=== PATIENT | female | born 1945 | race Caucasian/White ===

== ENCOUNTER 2018-08-02 15:09 | Observation (INO) ==
[2018-08-02] MEDS ORDERED: Aspirin 81 MG TAB.CHEW PO ONE (15:55)
--- NOTE | 2018-08-02 16:10 | Emergency Department Note ---
Disposition Clinical Impression: Chest pain Qualifiers: Chest pain type: unspecified Qualified Code(s): R07.9 - Chest pain, unspecified Disposition: Admitted As Inpatient Condition: Fair General Adult HPI - General Chief complaint: ED Weakness Stated complaint: Weakness, Jaw Pain Time Seen by Provider: 08/02/18 15:12 Source: patient Limitations: no limitations Nursing Notes Reviewed: Yes Vital Signs Reviewed: Yes - History of Present Illness HPI Narrative: 72-year-old female in no significant past medical history presenting to the emergency department chief complaint of chest pain. Patient states she was walking from a football game when she started having substernal chest pain where she was nauseated and diaphoretic. Patient states this has happened previously but she has not had a cardiac workup since 1969. Patient states after she stopped exerting herself or chest pain went away. Patient states this is just prior to arrival. Patient denies being on any anticoagulation. Denies any abdominal pain, cough or recent fevers. Patient did not take any medications prior to arrival. Patient is chest pain-free at this time. Pain Scale: 2 - Related Data Home Medications Medication Instructions Recorded Confirmed Albuterol Sulfate [Albuterol 2 puff IH Q4HR PRN 12/21/15 08/02/18 Inhaler] Docusate [Colace] 100 mg PO BID 12/21/15 08/02/18 Citalopram Hydrobromide [Celexa] 40 mg PO HS 05/08/16 08/02/18 ALPRAZolam [Xanax 0.5 MG Tablet] 0.5 mg PO BID 07/04/17 08/02/18 Cetirizine HCl [Zyrtec] 10 mg PO DAILY 07/04/17 08/02/18 Gabapentin [Neurontin] 300 mg PO TID 07/04/17 08/02/18 Cholecalciferol (D-3) [Vitamin D] 2,000 unit PO DAILY 08/02/18 08/02/18 Multivitamin [One Daily Essential] 1 tab PO DAILY 08/02/18 08/02/18 Previous Rx's Medication Instructions Recorded Cyclobenzaprine [Flexeril] 10 mg PO TID PRN #14 tablet 11/13/17 Allergies Allergy/AdvReac Type Severity Reaction Status Date / Time mannitol [From Reclast] Allergy Hives Verified 05/06/18 08:43 polymyxin B Allergy Rash Verified 05/06/18 08:43 sulfamethoxazole Allergy Rash Verified 05/06/18 08:43 [From Bactrim] trimethoprim [From Bactrim] Allergy Rash Verified 05/06/18 08:43 water for injection,sterile Allergy Hives Verified 05/06/18 08:43 [From Reclast] zoledronic acid Allergy Hives Verified 05/06/18 08:43 [From Reclast] valdecoxib AdvReac Mild raised bp Verified 05/06/18 08:43 Amoxicillin AdvReac See Verified 05/06/18 08:43 Comments NSAIDS (Non-Steroidal AdvReac Nausea Verified 05/06/18 08:43 Anti-Inflamma Muslrnp-Ilq-Pxh Reductase AdvReac Nausea Verified 05/06/18 08:43 Inhibitor [Statins] All systems ED: reviewed and negative except as stated. Constitutional: Denies: fever, chills Eyes: Reports: as per HPI ENT ED: Reports: as per HPI Cardiovascular: Reports: chest pain. Denies: palpitations, dyspnea on exertion Respiratory: Reports: as per HPI Gastrointestinal: Reports: nausea. Denies: abdominal pain, vomiting Genitourinary: Reports: as per HPI Musculoskeletal: Reports: as per HPI Integumentary: Reports: as per HPI Neurological: Denies: numbness, paresthesias Psychiatric: Reports: as per HPI Endocrine: Reports: as per HPI Hematological/Lymphatic: Reports: as per HPI Allergic/Immunologic: Reports: as per HPI Past Medical History - Past Medical History Attestation: Yes The following information was validated with the patient. Medical history: Reports: other Surgical history: Reports: cholecystectomy, hysterectomy Psychiatric history: Reports: anxiety, depression CHARGE MASTER ANALYST history: Reports: no CHARGE MASTER ANALYST history - Social History Smoking Status: Former smoker Smokeless Tobacco Status: No Alcohol use: Reports: none Drug use: Reports: none Physical Exam - General Limitations: no limitations General appearance: alert, in no apparent distress - Head Head exam: atraumatic, normocephalic, normal inspection - Eye Eye exam: Present: normal appearance. Absent: scleral icterus, conjunctival injection - ENT ENT exam: normal exam, mucous membranes moist - Neck Neck exam: Present: normal inspection, full ROM. Absent: tenderness, meningismus - Chest Chest inspection: Present: normal inspection, symmetric chest wall rise. Absent : tenderness, rash - Respiratory Respiratory exam: Present: normal lung sounds bilaterally. Absent: respiratory distress, wheezes - Cardiovascular Cardiovascular exam: Present: regular rate, normal rhythm, normal heart sounds - Abdominal Exam Abdominal exam: Present: soft, Non-Tender. Absent: distention, guarding, rebound - Extremities Exam Extremities exam: Present: normal inspection, full ROM - Neurological Exam Neurological exam: Present: alert, oriented X3 - Psychiatric Psychiatric exam: Present: normal affect, normal mood - Skin Skin exam: Present: warm, intact Course Course Narrative: 72-year-old female presenting for chest pain. History concerning for possible acute coronary syndrome due to diaphoresis, nausea and exertional characteristics. We will perform chest pain rule out including troponin, EKG and chest x-ray. Disposition most likely admission the pending results. We will provide the patient with aspirin. Patient chest pain-free at this time. - Reevaluation(s) Reevaluation #1: Patient's laboratory analysis benign. Chest radiograph benign. Patient has been pain-free throughout her stay. Due to her history and concerning history of present illness of chest pain we will plan to admit her for further evaluation. Patient remains alert and oriented 3 in the room with stable vital signs here patient agrees this plan. I spoke with the hospitalist transportation officer Dr. Diane who agrees to accept the patient at this time. Vital Signs Temperature 97.5 F L 08/02/18 15:17 Pulse Rate 94 08/02/18 15:17 Respiratory Rate 20 08/02/18 15:17 Blood Pressure 145/90 08/02/18 15:17 O2 Sat by Pulse Oximetry 95 08/02/18 15:17 Temperature 98.5 F 08/02/18 19:13 Pulse Rate 87 08/02/18 19:13 Respiratory Rate 16 08/02/18 19:13 Blood Pressure 128/73 08/02/18 19:13 O2 Sat by Pulse Oximetry 96 08/02/18 19:13 Oxygen Delivery Oxygen Delivery Room Air Medical Decision Making - Lab Data Result diagrams: 08/02/18 16:05 08/02/18 16:05 Lab Results 08/02/18 08/02/18 08/02/18 Range/Units 15:55 16:05 16:05 WBC 7.5 (4.3-11.1) K/mcL RBC 4.33 (3.82-4.97) M/mcL Hgb 13.6 (11.5-15.4) g/dL Hct 40.1 (35.3-44.9) % MCV 92.6 (83.0-100.0) fL MCH 31.4 (28.0-33.3) pg MCHC 33.9 (31.6-35.5) g/dL RDW 13.2 (11.5-14.5) % Plt Count 164 (140-400) K/mcL MPV 9.3 L (9.4-12.4) fL Immature Gran % 0.5 (0-4) % Seg Neutrophils % 62.2 % Lymphocytes % 25.3 % Monocytes % 8.7 % Eosinophils % 2.9 % Basophils % 0.4 % Neutrophils # 4.6 (1.6-8.9) K/mcL Lymphocytes # 1.9 (0.6-4.6) K/mcL Monocytes # 0.7 (0.0-1.3) K/mcL Eosinophils # 0.2 (0.0-0.6) K/mcL Basophils # 0.0 (0.0-0.2) K/mcL PT 10.6 (9.4-12.1) Seconds INR 0.9 APTT 30.1 (26.0-36.0) Seconds Sodium 138 (136-145) mEq/L Potassium 4.0 (3.5-5.1) mEq/L Chloride 103 (98-107) mEq/L Carbon Dioxide 27 (23-29) mEq/L BUN 18 (8-23) mg/dL Creatinine 0.90 (0.60-1.20) mg/dL Est GFR ( Amer) > 60 (> 60) Est GFR (Non-Af Amer) > 60 (> 60) BUN/Creatinine Ratio 20 (6-26) Glucose 93 (70-105) mg/dL Calculated Osmolality 288 (280-300) Calcium 9.4 (8.6-10.3) mg/dL Troponin I < 0.03 (< 0.04) ng/mL Urine Color (Yellow) Urine Clarity (Clear) Urine pH (5.0-8.0) pH Units Ur Specific [place] (1.010-1.025) Urine Protein (Neg-Trace) mg/dL Urine Glucose (UA) (Normal) mg/dL Urine Ketones (Negative) mg/dL Urine Blood (Negative) Urine Nitrite (Negative) Urine Bilirubin (Negative) Urine Urobilinogen (Normal) mg/dL Ur Leukocyte Esterase (Negative) Urine Microscopic RBC (0-3) per hpf Urine Microscopic WBC (0-3) per hpf Ur Squamous Epith Cells (None-Few) per lpf Urine Bacteria (None-Few) per hpf Hyaline Casts (None-Few) per lpf Ur Culture Indicated? (NO) 08/02/18 Range/Units 16:48 WBC (4.3-11.1) K/mcL RBC (3.82-4.97) M/mcL Hgb (11.5-15.4) g/dL Hct (35.3-44.9) % MCV (83.0-100.0) fL MCH (28.0-33.3) pg MCHC (31.6-35.5) g/dL RDW (11.5-14.5) % Plt Count (140-400) K/mcL MPV (9.4-12.4) fL Immature Gran % (0-4) % Seg Neutrophils % % Lymphocytes % % Monocytes % % Eosinophils % % Basophils % % Neutrophils # (1.6-8.9) K/mcL Lymphocytes # (0.6-4.6) K/mcL Monocytes # (0.0-1.3) K/mcL Eosinophils # (0.0-0.6) K/mcL Basophils # (0.0-0.2) K/mcL PT (9.4-12.1) Seconds INR APTT (26.0-36.0) Seconds Sodium (136-145) mEq/L Potassium (3.5-5.1) mEq/L Chloride (98-107) mEq/L Carbon Dioxide (23-29) mEq/L BUN (8-23) mg/dL Creatinine (0.60-1.20) mg/dL Est GFR ( Amer) (> 60) Est GFR (Non-Af Amer) (> 60) BUN/Creatinine Ratio (6-26) Glucose (70-105) mg/dL Calculated Osmolality (280-300) Calcium (8.6-10.3) mg/dL Troponin I (< 0.04) ng/mL Urine Color [place] A (Yellow) Urine Clarity Clear (Clear) Urine pH 7.5 (5.0-8.0) pH Units Ur Specific [place] < 1.005 L (1.010-1.025) Urine Protein Negative (Neg-Trace) mg/dL Urine Glucose (UA) Normal (Normal) mg/dL Urine Ketones Negative (Negative) mg/dL Urine Blood Negative (Negative) Urine Nitrite Positive A (Negative) Urine Bilirubin Negative (Negative) Urine Urobilinogen Normal (Normal) mg/dL Ur Leukocyte Esterase Small H (Negative) Urine Microscopic RBC 0-3 (0-3) per hpf Urine Microscopic WBC 0-3 (0-3) per hpf Ur Squamous Epith Cells Moderate H (None-Few) per lpf Urine Bacteria None Seen (None-Few) per hpf Hyaline Casts None Seen (None-Few) per lpf Ur Culture Indicated? YES A (NO) - EKG Data EKG #1 EKG attestation: Yes I reviewed and interpreted this EKG. EKG results narrative: Sinus rhythm. 86 beats for minute. [place] interval 157, QRS 96, QTC 442. PVCs. No sign of acute ST segment elevation or ischemia. Compared to previous EKG completed on 05/15/2018 no significant changes noted Attestation Statement - Attestation Attestation: I, Marty Magana, examined this patient and my medical decision-making was reviewed with the ANIMAL PATHOLOGIST/PA/Advanced Practice Nurse/Resident Physician. I agree with the documented findings, disposition and treatment plan as described except to the extent set forth below. 72-year-old female presents emergency Department with concerns of acute onset chest pain. Patient states she was walking to her car from a football game when she developed acute weakness and jaw pain and shoulder pain. It is associated with diaphoresis and nausea. This improved with rest. Patient denies a cardiac history however has not had a cardiac evaluation of multiple years. She denies fever, chills, recent injury or trauma or changes in her medications. Initial troponin negative. EKG did not show evidence of STEMI or other dysrhythmia. Patient will be admitted to the hospitalist for further care and evaluation.
[2018-08-02 16:25] LABS: Basophils % 0.4 %; Eosinophils # 0.2 K/mcL (0.0-0.6); Eosinophils % 2.9 %; Hematocrit 40.1 % (35.3-44.9); Hemoglobin 13.6 g/dL (11.5-15.4); Immature Granulocytes % 0.5 % (0-4); Lymphocytes # 1.9 K/mcL (0.6-4.6); Lymphocytes % 25.3 %; Mean Corpuscular HGB Conc 33.9 g/dL (31.6-35.5); Mean Corpuscular Hemoglobin 31.4 pg (28.0-33.3); Mean Corpuscular Volume 92.6 fL (83.0-100.0); Mean Platelet Volume 9.3 fL (9.4-12.4); Monocytes # 0.7 K/mcL (0.0-1.3); Monocytes % 8.7 %; Neutrophils # 4.6 K/mcL (1.6-8.9); Platelet Count 164 K/mcL (140-400); Red Blood Count 4.33 M/mcL (3.82-4.97); Red Cell Distribution Width 13.2 % (11.5-14.5); Segmented Neutrophils % 62.2 %
[2018-08-02 16:32] LABS: INR 0.9; Prothrombin Time 10.6 Seconds (9.4-12.1)
[2018-08-02 16:34] LABS: Activated Partial Thrombo Time 30.1 Seconds (26.0-36.0)
[2018-08-02 16:51] LABS: BUN/Creatinine Ratio 20 (6-26); Blood Urea Nitrogen 18 mg/dL (8-23); Calcium 9.4 mg/dL (8.6-10.3); Carbon Dioxide 27 mEq/L (23-29); Chloride 103 mEq/L (98-107); Glucose 93 mg/dL (70-105); Osmolality,Calculated 288 (280-300); Sodium 138 mEq/L (136-145); Troponin I < 0.03 ng/mL (< 0.04); eGFR For Non-African Americans > 60 (> 60)
[2018-08-02 16:57] LABS: Bilirubin,Urine Negative (Negative); Blood,Urine Negative (Negative); Clarity,Urine Clear (Clear); Color,Urine Orange (Yellow); Glucose,Urine (UA) Normal (Normal); Ketones,Urine Negative (Negative); Leukocyte Esterase,Urine Small (Negative); Nitrite,Urine Positive (Negative); PH,Urine 7.5 pH Units (5.0-8.0); Protein,Urine Negative (Neg-Trace); Specific Gravity,Urine < 1.005 (1.010-1.025); Urobilinogen,Urine Normal (Normal)
[2018-08-02 16:58] LABS: Bacteria,Urine None Seen per hpf (None-Few); Hyaline Casts,Urine None Seen per lpf (None-Few); RBC,Urine 0-3 per hpf (0-3); Squamous Epithelial Cell,Urine Moderate per lpf (None-Few); WBC,Urine 0-3 per hpf (0-3)
[2018-08-02] MEDS ORDERED: Naloxone 0.4 MG/ML INJ IVP PRN (17:24)
[2018-08-02] MEDS ORDERED: Nitroglycerin 0.4 MG TAB.SUBL SL PRN (17:29)
[2018-08-02] MEDS ORDERED: *HR* Morphine 2 MG/ML SYRINGE IVP PRN (17:29)
[2018-08-02] MEDS ORDERED: cefTRIAXone 2,000 MG in 0.9 % Sodium Chloride Mini Bag 100 ML IVPB ONE (18:00)
--- NOTE | 2018-08-02 18:07 | Internal Med History&Physical ---
Date of Encounter: 08/02/18 Time of Encounter: 17:51 Internal Medicine - H&P: HPI Chief complaint: Chest pain and UTI Admitted From: Home Plans for Post Hospital Care: Home History of present illness: Ms. Jluis Lester is a 72 year old female with no significant medical history presents to [facility] ED with a chief complaint of chest pain described as sharp in nature and substernal with radiation to bilateral shoulders and bilateral jaw. Associated symptoms include shortness of breath, diaphoresis, nausea, palpitations and tachycardia. She denies any medical history of arrhythmias. She reports that the pain began this afternoon while walking back to her car from a football game. She reports that she began to experience the chest pain as well as associated symptoms and dizziness and had to hold herself up against the wall to keep from falling. Chest pain lasted approximately 3-5 minutes and subsided without further intervention. Per my assessment she is chest pain free and resting comfortably without any distress. Initial troponin in the ED less than 0.03. EKG sinus rhythm [address]-T wave changes concerning for ischemia per my review. Urinalysis revealed positive nitrites and leukocyte esterase. Urinary tract infection and chest pain given her presentation she is being admitted for rule out ACS and treatment of UTI. Past Med Surg Social Fam HX - Past Medical History Medical history: other Additional medical history: TMJ, interstitial cystitis Psychiatric history: anxiety, depression - Past Surgical History Surgical History: cholecystectomy, hysterectomy Additional surgical history: left eye, egd,colonoscopy hemorrhoidectomy/ rectal prolapse. hysterectomy. appendectomy. T&A. Laparoscopy, rotator cuff surgery. ACDF C5-7. colonoscopy-pos for polyps. EGD - Social History Smoking Status: Former smoker Smokeless Tobacco Status: No Alcohol use: none Drug use: none - Family History Father Hx Family Cardiac Disorders: Yes (CAD) Internal Medicine - H&P: Meds Albuterol Sulfate [Albuterol Inhaler] 2 puff IH Q4HR PRN 12/21/15 [History] Docusate [Colace] 100 mg PO BID 12/21/15 [History] Citalopram Hydrobromide [Celexa] 40 mg PO HS 05/08/16 [History] ALPRAZolam [Xanax 0.5 MG Tablet] 0.5 mg PO BID 07/04/17 [History] Cetirizine HCl [Zyrtec] 10 mg PO DAILY 07/04/17 [History] Gabapentin [Neurontin] 300 mg PO TID 07/04/17 [History] Cyclobenzaprine [Flexeril] 10 mg PO TID PRN #14 tablet 11/13/17 [Rx] Cholecalciferol (D-3) [Vitamin D] 2,000 unit PO DAILY 08/02/18 [History] Multivitamin [One Daily Essential] 1 tab PO DAILY 08/02/18 [History] 3 Allergy/AdvReac Type Severity Reaction Status Date / Time mannitol [From Reclast] Allergy Hives Verified 05/06/18 08:43 polymyxin B Allergy Rash Verified 05/06/18 08:43 sulfamethoxazole Allergy Rash Verified 05/06/18 08:43 [From Bactrim] trimethoprim [From Bactrim] Allergy Rash Verified 05/06/18 08:43 water for injection,sterile Allergy Hives Verified 05/06/18 08:43 [From Reclast] zoledronic acid Allergy Hives Verified 05/06/18 08:43 [From Reclast] valdecoxib AdvReac Mild raised bp Verified 05/06/18 08:43 Amoxicillin AdvReac See Verified 05/06/18 08:43 Comments NSAIDS (Non-Steroidal AdvReac Nausea Verified 05/06/18 08:43 Anti-Inflamma Pjamuqw-Nyt-Dwj Reductase AdvReac Nausea Verified 05/06/18 08:43 Inhibitor [Statins] All Systems PM: A 10-system review of systems was performed and is negative for pertinent findings except as documented above in the HPI. - Constitutional Constitutional: as per HPI - EENT Eyes: as per HPI - Cardiovascular Cardiovascular ROS IM: as per HPI - Respiratory Respiratory: as per HPI - Gastrointestinal Gastrointestinal: as per HPI - Genitourinary Genitourinary: as per HPI, no change in urinary stream, no dysuria, no flank pain, no hematuria - Musculoskeletal Musculoskeletal ROS IM: as per HPI - Integumentary Integumentary IM: as per HPI - Neurological Neurological ROS: as per HPI - Constitutional Vitals: Temp Pulse Resp BP Pulse Ox 97.5 F L 76 20 134/81 97 08/02/18 15:36 08/02/18 17:01 08/02/18 17:37 08/02/18 17:37 08/02/18 17:01 General appearance: Present: A&O X 3 Exam: . - Head Head exam: Present: atraumatic, normocephalic - Eye Eye exam: Present: PERRL, conjuntiva pink, sclera anicteric Pupils: Present: PERRL - Neck Neck exam general surgery: Present: supple, trachea midline. Absent: lymphadenopathy - Respiratory Respiratory exam: Present: CTAB. Absent: accessory muscle use, rales, rhonchi, wheezes - Cardiovascular Cardiovascular exam: Present: RRR, +S1, +S2. Absent: diastolic murmur, gallop, rubs, systolic murmur - GI/Abdominal GI/Abdominal exam: Present: normal bowel sounds, soft, no peritoneal signs. Absent: distended, tenderness - Extremities Exam Extremities exam: Present: tenderness, warm, radial pulses palpable and symmetrical. Absent: calf tenderness, cyanotic, pedal edema Additional comments: Generalized tenderness to bilateral upper and lower extremities. Has history of fibromyalgia she reports the tenderness is chronic - Neurological Exam Neurological exam: Present: CN II-XII intact, oriented X3, no focal deficits. Absent: pronater drift, facial droop, speech deficit - Skin Skin exam: Present: dry, intact Internal Med - H&P Results - Labs CBC & Chem 7: 08/02/18 16:05 08/02/18 16:05 - EKG Data -: EKG Interpreted by Myself EKG shows normal: sinus rhythm Rate: normal - EKG Data Interpretation IM: normal EKG - Impressions Impressions Chest X-Ray 08/02/18 15:55 IMPRESSION: No significant findings in the chest. D/ / Celso Parmar MD / Celso Parmar MD Interpreting Provider: Celso Parmar MD - Assessment and plan (1) Chest pain Current Visit: Yes Status: Acute Assessment and plan: Presents with chest pain substernal with radiation to b/l shoulder and b/l jaw dyspnea, nausea, dizziness and palpitations no prior h/o CAD, has positive family hx. Minimal risk factors otherwise However given symptoms associated with chest pain we will continue to rule out ACS CXR without acute pulmonary process PLAN: - cardiac enzymes x 2 q 6 hr - EKG now and in AM - ASA - O2 by NC to keep SpO2 greater than 92% - CBCD, BMP in AM - Fasting lipids - Morphine 2 mg IV q 2-4 hr PRN chest pain - Nitroglycerin for chest pain PRN - Lovenox - 2D Echo - Continuous telemetry - Nothing by mouth after midnight - Stress test in the morning - Unable to take statins due to sensitivities Qualifiers: Chest pain type: unspecified Qualified Code(s): R07.9 - Chest pain, unspecified (2) UTI (urinary tract infection) Current Visit: Yes Status: Acute Assessment and plan: UTI diagnosed Friday, treated with Macrobid for 5 days Continues to have dysuria and urinary frequency as well as incontinence UA completed in ED today showing positive nitrates and small leukocyte esterase Sent for culture Treatment with Rocephin IV fluids Qualifiers: Urinary tract infection type: site unspecified Hematuria presence: without hematuria Qualified Code(s): N39.0 - Urinary tract infection, site not specified (3) DVT prophylaxis Current Visit: Yes Status: Acute Assessment and plan: Lovenox - Time Spent With Patient Total time spent is greater than 50% in coordination of care (as documented) at patient's floor/unit and/or counseling patient: 25 - 35 minutes
[2018-08-02] MEDS: Gabapentin 300 MG CAPSULE PO SCH (21:16)
[2018-08-02] MEDS: ALPRAZolam 0.5 MG TABLET PO SCH (21:16)
[2018-08-02] MEDS: 0.9 % Sodium Chloride 1,000 ML IVC SCH (21:27)
[2018-08-03 04:01] LABS: Hematocrit 38.7 % (35.3-44.9); Mean Corpuscular HGB Conc 33.6 g/dL (31.6-35.5); Mean Corpuscular Hemoglobin 32.1 pg (28.0-33.3); Mean Corpuscular Volume 95.6 fL (83.0-100.0); Mean Platelet Volume 9.5 fL (9.4-12.4); Platelet Count 143 K/mcL (140-400); Red Blood Count 4.05 M/mcL (3.82-4.97); Red Cell Distribution Width 13.2 % (11.5-14.5)
[2018-08-03 04:23] LABS: BUN/Creatinine Ratio 17 (6-26); Blood Urea Nitrogen 16 mg/dL (8-23); Carbon Dioxide 28 mEq/L (23-29); Chloride 106 mEq/L (98-107); Glucose 107 mg/dL (70-105); Potassium 4.5 mEq/L (3.5-5.1); Sodium 141 mEq/L (136-145); eGFR For Non-African Americans 59 (> 60)
[2018-08-03 04:24] LABS: Calcium 8.5 mg/dL (8.6-10.3); Chol/HDL Ratio 4.9 (0-4.9); Cholesterol 282 mg/dL (< 200); HDL Cholesterol 58 mg/dL (40-59); LDL Cholesterol,Calculated 198 mg/dL (0-99); Osmolality,Calculated 294 (280-300); Triglycerides 131 mg/dL (< 150)
[2018-08-03] MEDS ORDERED: Regadenoson 0.4 MG/5 ML SYRINGE IVP ONE (06:19)
[2018-08-03] MEDS: cefTRIAXone 1,000 MG in Water for inj. (sterile) 20 ML 10 ML IVPB SCH (09:48)
[2018-08-03] MEDS: Loratadine 10 MG TABLET PO SCH (09:49)
[2018-08-03] MEDS: ALPRAZolam 0.5 MG TABLET PO SCH ×2 (09:49→20:52)
[2018-08-03] MEDS: Aspirin 81 MG TAB.CHEW PO SCH (09:50)
[2018-08-03] MEDS: Multivit/Ca/Min/Fe/FA 1 TAB TABLET PO SCH (09:50)
[2018-08-03] MEDS: Cholecalciferol (D-3) 1,000 UNIT TABLET PO SCH (09:50)
[2018-08-03] MEDS: *HR* Enoxaparin 40 MG/0.4 ML SYRINGE SQ SCH (09:51)
[2018-08-03] MEDS: Gabapentin 300 MG CAPSULE PO SCH ×3 (10:31→20:52)
[2018-08-03] MEDS: 0.9 % Sodium Chloride 1,000 ML IVC SCH (12:08)
--- NOTE | 2018-08-03 15:10 | Discharge Summary ---
- NOTES TO OUTPATIENT PROVIDER Notes to Outpatient Provider: Found to have HLD during ACS r/o. ACS ruled out. Started on daily ASA; refused statin med d/t sensitivity "makes me cramp" Orders not resulted at time of discharge: Pending orders 08/03/18 06:00 NM jessica perf SPECT multi [NM] Routine Date of Encounter: 08/03/18 Time of Encounter: 15:08 - Discharge Diagnosis (1) Chest pain Priority: Primary Status: Acute Assessment and Plan: Presents with chest pain substernal with radiation to b/l shoulder and b/l jaw dyspnea, nausea, dizziness and palpitations no prior h/o CAD, has positive family hx. Minimal risk factors otherwise However given symptoms associated with chest pain we will continue to rule out ACS CXR without acute pulmonary process PLAN: - cardiac enzymes x 2 q 6 hr - EKG now and in AM - ASA - O2 by NC to keep SpO2 greater than 92% - CBCD, BMP in AM - Fasting lipids - Morphine 2 mg IV q 2-4 hr PRN chest pain - Nitroglycerin for chest pain PRN - Lovenox - 2D Echo - Continuous telemetry - Nothing by mouth after midnight - Stress test in the morning - Unable to take statins due to sensitivities 08/03--clinically, patient is at baseline. Denies any return of chest pain throughout stay. He remains hemodynamically stable per review of vitals. Stress test completed without findings for ischemia. Serial troponins negative 3. With low risk for acute coronary syndrome and negative workup patient is being discharged. She has been instructed to return to the ED should she begin to experience S/Sx of ME including chest pain, shortness of breath, dizziness, fatigue, diaphoresis, palpitations, tachycardia. The patient verbalizes understanding and denies any further questions at this time. She has been instructed to follow-up with her PCP within 1 week of discharge. Additionally, she has been started a follow-up with cardiology in the outpatient setting showed chest pain persist. LVEF 60%. Mild left ventricular diastolic dysfunction. Normal right ventricular structure and function. Mild tricuspid regurgitation. No pulmonary hypertension. Qualifiers: Chest pain type: unspecified Qualified Code(s): R07.9 - Chest pain, unspecified (2) UTI (urinary tract infection) Priority: Secondary Status: Acute Assessment and Plan: UTI diagnosed Friday, treated with Macrobid for 5 days Continues to have dysuria and urinary frequency as well as incontinence UA completed in ED today showing positive nitrates and small leukocyte esterase Sent for culture Treated with Rocephin during stay However, will discharge home with a course of Levaquin. Patient was recently placed on Macrobid for urinary tract infection but failed outpatient treatment. Please reevaluate at follow-up with PCP Qualifiers: Urinary tract infection type: site unspecified Hematuria presence: without hematuria Qualified Code(s): N39.0 - Urinary tract infection, site not specified (3) DVT prophylaxis Priority: Secondary Status: Acute Hospital course: Ms. Jluis Lester is a 72 year old female - Time Spent with Patient Total time spent providing and/or coordinating discharge services: - Discharge Medications Home Medications: Albuterol Sulfate [Albuterol Inhaler] 2 puff IH Q4HR PRN 12/21/15 [History] Docusate [Colace] 100 mg PO BID 12/21/15 [History] Citalopram Hydrobromide [Celexa] 40 mg PO HS 05/08/16 [History] ALPRAZolam [Xanax 0.5 MG Tablet] 0.5 mg PO BID 07/04/17 [History] Cetirizine HCl [Zyrtec] 10 mg PO DAILY 07/04/17 [History] Gabapentin [Neurontin] 300 mg PO TID 07/04/17 [History] Cyclobenzaprine [Flexeril] 10 mg PO TID PRN #14 tablet 11/13/17 [Rx] Cholecalciferol (D-3) [Vitamin D] 2,000 unit PO DAILY 08/02/18 [History] Multivitamin [One Daily Essential] 1 tab PO DAILY 08/02/18 [History] Aspirin 81 mg PO DAILY tab.chew 08/03/18 [Rx] Allergies/Adverse Reactions: 3 Allergy/AdvReac Type Severity Reaction Status Date / Time mannitol [From Reclast] Allergy Hives Verified 05/06/18 08:43 polymyxin B Allergy Rash Verified 05/06/18 08:43 sulfamethoxazole Allergy Rash Verified 05/06/18 08:43 [From Bactrim] trimethoprim [From Bactrim] Allergy Rash Verified 05/06/18 08:43 water for injection,sterile Allergy Hives Verified 05/06/18 08:43 [From Reclast] zoledronic acid Allergy Hives Verified 05/06/18 08:43 [From Reclast] valdecoxib AdvReac Mild raised bp Verified 05/06/18 08:43 Amoxicillin AdvReac See Verified 05/06/18 08:43 Comments NSAIDS (Non-Steroidal AdvReac Nausea Verified 05/06/18 08:43 Anti-Inflamma Oxffiqk-Xld-Dtp Reductase AdvReac Nausea Verified 05/06/18 08:43 Inhibitor [Statins] Date of admission: 08/02/18 17:17 Primary care physician: Jennifer Gautam Discharging clinician: Kyle Lopez Anticipated date of discharge: 08/03/18 - Constitutional Vitals: Temp Pulse Resp BP Pulse Ox 97.8 F 81 15 128/77 95 08/03/18 11:39 08/03/18 11:39 08/03/18 11:39 08/03/18 11:39 08/03/18 11:39 General appearance: Present: A&O X 3 - Patient Status Condition: Fair - Discharge Instructions Follow Up With: Jennifer Gautam MD [Primary Care Provider] -
--- NOTE | 2018-08-03 15:40 | Internal Med Progress Note ---
Hospitalist Progress Note - Encounter Date of Encounter: 08/03/18 Time of Encounter: 15:26 - Subjective Interval History: No acute changes overnight. Continues to report dyspnea with exertion - Exam Vitals: Temp Pulse Resp BP Pulse Ox 97.8 F 94 18 144/87 95 08/03/18 15:16 08/03/18 15:16 08/03/18 15:16 08/03/18 15:16 08/03/18 11:39 Exam: PHYSICAL EXAMINATION: GENERAL: alert and oriented x3. HEENT: Head is normocephalic and atraumatic. Extraocular muscles are intact. Pupils are equal, round, and reactive to light and accommodation. NECK: Supple. No carotid bruits. No lymphadenopathy or thyromegaly. LUNGS: Clear to auscultation. HEART: Regular rate and rhythm, S1, S2 without murmur. ABDOMEN: Soft, nontender, and nondistended. Positive bowel sounds. No hepatosplenomegaly was noted. EXTREMITIES: Without any cyanosis, clubbing, rash, lesions or edema. NEUROLOGIC: Cranial nerves II through XII are grossly intact. PSYCH: Anxious appearing SKIN: No ulceration or induration present. - Assessment and Plan (1) Chest pain Current Visit: Yes Status: Acute Assessment and Plan: Presented with substernal chest pain with radiation to bilateral shoulders and bilateral Meade. Associated signs and symptoms included dyspnea, diaphoresis, nausea, palpitations tachycardia Serial troponins negative, EKG without any ST-T wave changes concerning for ischemia Echocardiogram grossly normal-EF 60%, mild LV KATHY, normal RV structure, mild TR Stress test completed today negative for ischemia With planning for discharge, however, patient ambulating in hallway and developed CP consulted cardio; rec NPO after midnight, potential LHC in the a.m. continue tele, nitro and morphine for CP (2) UTI (urinary tract infection) Current Visit: Yes Status: Acute Assessment and Plan: UA reveals UTI Recently failed outpatient treatment with Macrobid Continue Rocephin Daily labs Does not appear toxic (3) DVT prophylaxis Current Visit: Yes Status: Acute Assessment and Plan: Lovenox - Time Spent with Patient Total time spent is greater than 50% in coordination of care (as documented) at patient's floor/unit and/or counseling patient: less than 15 minutes Plan of Care Discussed with: patient Internal Medicine: Result - Labs CBC & Chem 7: 09/24/18 03:35 08/03/18 03:35 Labs: Short CBC 08/03/18 Range/Units 03:35 WBC 5.8 (4.3-11.1) K/mcL Hgb 13.0 (11.5-15.4) g/dL Hct 38.7 (35.3-44.9) % Plt Count 143 (140-400) K/mcL BMP 08/03/18 03:35 Sodium 141 Potassium 4.5 Chloride 106 Carbon Dioxide 28 BUN 16 Creatinine 0.94 Glucose 107 H Calcium 8.5 L Cardiac Enzymes 08/02/18 08/03/18 Range/Units 20:59 03:35 Troponin I < 0.03 < 0.03 (< 0.04) ng/mL - ABG Interpretation ABG results: PT/INR, D-dimer PT 10.6 Seconds (9.4-12.1) 08/02/18 15:55 - Impressions Impressions Echocardiogram 08/03/18 07:00 Impressions: LVEF 60%. Mild left ventricular diastolic dysfunction. Normal right ventricular structure and function. Mild tricuspid regurgitation. No pulmonary hypertension. Left Ventricular Wall Motion: Rest Echo Findings All wall segments showed normal motion. Findings: Study Quality * Technically adequate exam. ECG Findings * Normal sinus rhythm. Left Ventricle * LVEF 60%. * Normal LV chamber size, wall thickness and function. * Mild left ventricular diastolic dysfunction. Right Ventricle * Normal right ventricular structure and function. Left Atrium * Normal left atrial size. Right Atrium * Normal right atrial size. Mitral Valve * Normal mitral valve structure. * No mitral stenosis. * No mitral regurgitation. Aortic Valve * No aortic regurgitation. * Aortic valve not well visualized. * No aortic stenosis. Tricuspid Valve * Mild tricuspid regurgitation. * Tricuspid valve not well visualized. Pulmonic Valve * Pulmonic valve is not well visualized. * No pulmonic stenosis. * No pulmonic regurgitation. Pulmonary Artery * Pulmonary artery not well visualized. Aorta * Normally sized aortic root. Pericardium * There is no pericardial effusion present. Interatrial Septum * No evidence of PFO by color Doppler. IVC * The IVC is not well evaluated. Consult Discharge Plan - Plan Referrals: Jennifer Gautam MD [Primary Care Provider] - (1) Chest pain Qualifiers: Chest pain type: unspecified Qualified Code(s): R07.9 - Chest pain, unspecified (2) UTI (urinary tract infection) Qualifiers: Urinary tract infection type: site unspecified Hematuria presence: without hematuria Qualified Code(s): N39.0 - Urinary tract infection, site not specified
--- NOTE | 2018-08-03 17:17 | Electrocardiograph Report ---
[place] [id number] Test Date: 2018-08-02 Pat Name: Julianne Lester Department: [id number] Room: 3B Gender: F Security Systems Engineer: : 1945 Requested By: Kirsten Lopez Order Number: [id number] Reading MD: Socorro Concepcion Measurements Intervals [place] Rate: 86 P: 30 DC: 157 QRS: -5 QRSD: 96 T: 43 QT: 369 QTc: 442 Interpretive Statements Sinus rhythm Ventricular premature complex Low voltage, precordial leads Electronically Signed On 08-03-2018 17:15:26 EDT by Socorro Concepcion
[2018-08-04] MEDS: *HR* Enoxaparin 40 MG/0.4 ML SYRINGE SQ SCH (05:20)
[2018-08-04] MEDS: Aspirin 81 MG TAB.CHEW PO SCH (09:02)
[2018-08-04] MEDS: Cholecalciferol (D-3) 1,000 UNIT TABLET PO SCH (09:02)
[2018-08-04] MEDS: Multivit/Ca/Min/Fe/FA 1 TAB TABLET PO SCH (09:02)
[2018-08-04] MEDS: Loratadine 10 MG TABLET PO SCH (09:03)
[2018-08-04] MEDS: ALPRAZolam 0.5 MG TABLET PO SCH ×2 (09:03→20:42)
[2018-08-04] MEDS: Gabapentin 300 MG CAPSULE PO SCH ×3 (09:03→20:42)
[2018-08-04] MEDS: cefTRIAXone 1,000 MG in Water for inj. (sterile) 20 ML 10 ML IVPB SCH (09:04)
--- NOTE | 2018-08-04 09:25 | Cardiology Consult Note ---
Date of Encounter: 08/04/18 Time of Encounter: 09:17 Assessment and Plan (1) Chest discomfort Current Visit: Yes Status: Acute Patient elaborated on her history of chest discomfort. States over the past year she has had on and off jaw pain that has radiated down her back and into her chest. Over the last 2 weeks she has had shortness of breath and "flutters" while walking up stairs and while talking on the phone. She states that Friday she was at a football game and had jaw pain that radiated down into her chest, shortness of breath, flutters, and she got confused. She also had shortness of breath and flutters while walking down the hallway last night in the hospital. Previous history of ED visit in 2011 (In [facility]) for shortness of breath and sweating, started on metoprolol and lisinopril for hypertension but taken off shortly after due to hypotension. Her EKG showed sinus rhythm Echo shows LVEF 60% Stress showed resting ECG normal sinus rhythm, no arrhythmias during stress, no chest pain during stress, and non-diagnostic for ischemia due to the presence of artifact throughout exercise. Normal Hemodynamic response. Troponins <0.03 x2 Options were discussed with the patient including pharmacologic therapy with follow up out patient or diagnostic left heart catheterization today Patient would prefer diagnostic cathatheterization, this will be scheduled for later today. Discussion w patient/family: The assessment and plan as outlined above was discussed with the patient and/or family members who expressed understanding and agreement. All questions were answered. Thank you for involving us in the care of your patient. Please call with any questions. History of Present Illness Consult date: 08/03/18 Requesting physician: Kyle Lopez Consult reason: chest pain Chief complaint: Shortness of breath, palpitations History of present illness: Ms. Jluis Lester is a 72 year old female with history of hypercholesterolemia, TMJ, and Fibromyalgia. Denies HTN, Diabetes. Hx of admission in [facility] in 2011 for Shortness of breath, sweating was put on metoprolol and lisinopril for HTN, but then her blood pressure dropped and she had to stop it. Over the past year she states she has had on and off again jaw pain that radiates to her chest and back, lasting a few minutes. Over the last 2 weeks she has been noticing that going up stairs and talking on the phone she gets short of breath and feels that her heart is fluttering. On Friday she was leaving a football game and got so short of breath she had to hold herself up against the wall while her daughter got the car. She states that her Jaw started hurting which was a different type of pain than her usual TMJ, and radiated down her neck to her chest and back. She states she does not really have chest pain but gets short of breath, starts coughing, and feels like her heart is fluttering. She states last night when shew walked down the hallway she got short of breath and felt her heart was fluttering, it did not last as long as the one earlier in day had. She stated once she sat down it subsided. She has not had another episode since last night even after walking the hallways again. She states she had a carotid duplex by Dr. Mendoza in the early which showed some plaque formation. 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 Past Med Surg Social Fam HX - Past Medical History Medical history: other Additional medical history: TMJ, interstitial cystitis, left knee osteoarthritis , basal cell carcinoma left leg Psychiatric history: anxiety, depression - Past Surgical History Surgical History: cholecystectomy, hysterectomy Additional surgical history: left eye, egd,colonoscopy hemorrhoidectomy/ rectal prolapse. hysterectomy. appendectomy. T&A. Laparoscopy, rotator cuff surgery. ACDF C5-7. colonoscopy-pos for polyps. EGD - Social History Smoking Status: Former smoker Packs per day: 1 Smokeless Tobacco Status: No Alcohol use: none Drug use: none - Family History Father Hx Family Cardiac Disorders: Yes (CAD) Hx Family Medical Disorders: Yes (liver cirrhosis) Mother Living Status: Hx Family Cardiac Disorders: Yes ([place]) Hx Family Neurologic Disorders: Yes (dementia) Medications and Allergies Albuterol Sulfate [Albuterol Inhaler] 2 puff IH Q4HR PRN 12/21/15 [History] Docusate [Colace] 100 mg PO BID 12/21/15 [History] Citalopram Hydrobromide [Celexa] 40 mg PO HS 05/08/16 [History] ALPRAZolam [Xanax 0.5 MG Tablet] 0.5 mg PO BID 07/04/17 [History] Cetirizine HCl [Zyrtec] 10 mg PO DAILY 07/04/17 [History] Gabapentin [Neurontin] 300 mg PO TID 07/04/17 [History] Cyclobenzaprine [Flexeril] 10 mg PO TID PRN #14 tablet 11/13/17 [Rx] Cholecalciferol (D-3) [Vitamin D] 2,000 unit PO DAILY 08/02/18 [History] Multivitamin [One Daily Essential] 1 tab PO DAILY 08/02/18 [History] Aspirin 81 mg PO DAILY tab.chew 08/03/18 [Rx] 3 Allergy/AdvReac Type Severity Reaction Status Date / Time mannitol [From Reclast] Allergy Hives Verified 05/06/18 08:43 polymyxin B Allergy Rash Verified 05/06/18 08:43 sulfamethoxazole Allergy Rash Verified 05/06/18 08:43 [From Bactrim] trimethoprim [From Bactrim] Allergy Rash Verified 05/06/18 08:43 water for injection,sterile Allergy Hives Verified 05/06/18 08:43 [From Reclast] zoledronic acid Allergy Hives Verified 05/06/18 08:43 [From Reclast] valdecoxib AdvReac Mild raised bp Verified 05/06/18 08:43 Amoxicillin AdvReac See Verified 05/06/18 08:43 Comments NSAIDS (Non-Steroidal AdvReac Nausea Verified 05/06/18 08:43 Anti-Inflamma Wimhsvn-Dew-Vls Reductase AdvReac Nausea Verified 05/06/18 08:43 Inhibitor [Statins] All Systems Review: The remainder of the systems were reviewed and are negative - Constitutional Constitutional: anorexia, no chills, no fatigue, no fever(s) - EENT Eyes: no blurred vision, no loss of vision - Cardiovascular Cardiovascular: dyspnea on exertion, irregular heart rhythm, radiating jaw, neck or arm pain - Respiratory Respiratory: cough, dyspnea - Gastrointestinal Gastrointestinal: no abdominal pain, no constipation, no diarrhea - Musculoskeletal Musculoskeletal: arthralgias (History of fibromyalgia), no muscle cramps, no muscle weakness - Neurological Neurological: memory loss (She states when she gets short of breath and feels that her heart is flluttering she cannot remember what all has happened), no abnormal speech Physical Examination Vital Signs, Last 4 Hours Temp Pulse Resp BP 08/04/18 06:38 97.4 F L 79 16 136/83 General: Conversant, No Apparent Distress HEENT: Atraumatic, Normocephaly, Mucus Membranes Moist Neck: No JVD Cardiac: Reg Rate and Rhythm, No Murmur Lungs: Normal Breath Sounds, No Wheeze, Rales, Rhonchi Neuro: Alert and responsive, No focal deficits noted Abdomen: Soft, Non-Tender Skin: No rashes noted on visualized skin Musculoskeletal: No Chest Wall Tenderness Extremities: No Clubbing, No Cyanosis, No Edema Results 08/03/18 03:35 08/03/18 03:35 Consult Discharge Plan - Plan Referrals: Jennifer Gautam MD [Primary Care Provider] - 08/12/18 1:45 pm (Requested a follow up appointment in 7-10 days, with Jennifer Gautam. )
--- NOTE | 2018-08-04 10:22 | Internal Med Progress Note ---
Hospitalist Progress Note - Encounter Date of Encounter: 08/04/18 Time of Encounter: 10:22 - Subjective Interval History: Patient was seen and examined at bedside-currently denies any chest pain awaiting cardiology's recommendation possibly left heart catheterization today - Exam Vitals: Temp Pulse Resp BP Pulse Ox 97.4 F L 79 16 136/83 93 08/04/18 06:38 08/04/18 06:38 08/04/18 06:38 08/04/18 06:38 08/04/18 03:39 Exam: PHYSICAL EXAMINATION: GENERAL: alert and oriented x3. HEENT: Head is normocephalic and atraumatic. Extraocular muscles are intact. Pupils are equal, round, and reactive to light and accommodation. NECK: Supple. No carotid bruits. No lymphadenopathy or thyromegaly. LUNGS: Clear to auscultation. HEART: Regular rate and rhythm, S1, S2 without murmur. ABDOMEN: Soft, nontender, and nondistended. Positive bowel sounds. No hepatosplenomegaly was noted. EXTREMITIES: Without any cyanosis, clubbing, rash, lesions or edema. NEUROLOGIC: Cranial nerves II through XII are grossly intact. PSYCH: Anxious appearing SKIN: No ulceration or induration present. - Assessment and Plan (1) Chest pain Current Visit: Yes Status: Acute Assessment and Plan: Presented with substernal chest pain with radiation to bilateral shoulders and bilateral Meade. Associated signs and symptoms included dyspnea, diaphoresis, nausea, palpitations tachycardia Serial troponins negative, EKG without any ST-T wave changes concerning for ischemia Echocardiogram grossly normal-EF 60%, mild LV KATHY, normal RV structure, mild TR Stress test completed -negative for ischemia With planning for discharge, however, patient ambulating in hallway and developed CP consulted cardio; rec NPO after midnight, potential LHC in the a.m. continue tele, nitro and morphine for CP 08/04- currently no chest pain at this time continues to be nothing by mouth awaiting cardiology evaluation and recommendations concerning possible left heart Today Continue with nitroglycerin as needed for chest pain Continuous cardiac monitoring Continue aspirin (2) UTI (urinary tract infection) Current Visit: Yes Status: Acute Assessment and Plan: UA reveals UTI Recently failed outpatient treatment with Macrobid Urinalysis with no growth she is received 2 days of Rocephin which we will discontinue at this time. (3) DVT prophylaxis Current Visit: Yes Status: Acute Assessment and Plan: Lovenox - Time Spent with Patient Total time spent is greater than 50% in coordination of care (as documented) at patient's floor/unit and/or counseling patient: Internal Medicine: Result - Labs CBC & Chem 7: 08/03/18 03:35 08/03/18 03:35 - ABG Interpretation ABG results: PT/INR, D-dimer PT 10.6 Seconds (9.4-12.1) 08/02/18 15:55 - Impressions Impressions Echocardiogram 08/03/18 07:00 Impressions: LVEF 60%. Mild left ventricular diastolic dysfunction. Normal right ventricular structure and function. Mild tricuspid regurgitation. No pulmonary hypertension. Left Ventricular Wall Motion: Rest Echo Findings All wall segments showed normal motion. Findings: Study Quality * Technically adequate exam. ECG Findings * Normal sinus rhythm. Left Ventricle * LVEF 60%. * Normal LV chamber size, wall thickness and function. * Mild left ventricular diastolic dysfunction. Right Ventricle * Normal right ventricular structure and function. Left Atrium * Normal left atrial size. Right Atrium * Normal right atrial size. Mitral Valve * Normal mitral valve structure. * No mitral stenosis. * No mitral regurgitation. Aortic Valve * No aortic regurgitation. * Aortic valve not well visualized. * No aortic stenosis. Tricuspid Valve * Mild tricuspid regurgitation. * Tricuspid valve not well visualized. Pulmonic Valve * Pulmonic valve is not well visualized. * No pulmonic stenosis. * No pulmonic regurgitation. Pulmonary Artery * Pulmonary artery not well visualized. Aorta * Normally sized aortic root. Pericardium * There is no pericardial effusion present. Interatrial Septum * No evidence of PFO by color Doppler. IVC * The IVC is not well evaluated. Consult Discharge Plan - Plan Referrals: Jennifer Gautam MD [Primary Care Provider] - 08/12/18 1:45 pm (Requested a follow up appointment in 7-10 days, with Jennifer Gautam. ) (1) Chest pain Qualifiers: Chest pain type: unspecified Qualified Code(s): R07.9 - Chest pain, unspecified (2) UTI (urinary tract infection) Qualifiers: Urinary tract infection type: site unspecified Hematuria presence: without hematuria Qualified Code(s): N39.0 - Urinary tract infection, site not specified
[2018-08-05 05:36] LABS: Basophils % 0.5 %; Eosinophils # 0.2 K/mcL (0.0-0.6); Eosinophils % 4.8 %; Hematocrit 36.6 % (35.3-44.9); Hemoglobin 12.3 g/dL (11.5-15.4); Immature Granulocytes % 0.5 % (0-4); Lymphocytes # 1.6 K/mcL (0.6-4.6); Lymphocytes % 35.4 %; Mean Corpuscular HGB Conc 33.6 g/dL (31.6-35.5); Mean Corpuscular Hemoglobin 32.4 pg (28.0-33.3); Mean Corpuscular Volume 96.3 fL (83.0-100.0); Mean Platelet Volume 9.5 fL (9.4-12.4); Monocytes # 0.5 K/mcL (0.0-1.3); Monocytes % 10.3 %; Neutrophils # 2.1 K/mcL (1.6-8.9); Platelet Count 137 K/mcL (140-400); Red Cell Distribution Width 13.3 % (11.5-14.5); Segmented Neutrophils % 48.5 %
[2018-08-05] MEDS: *HR* Enoxaparin 40 MG/0.4 ML SYRINGE SQ SCH (05:43)
[2018-08-05 05:45] LABS: BUN/Creatinine Ratio 17 (6-26); Blood Urea Nitrogen 14 mg/dL (8-23); Calcium 8.7 mg/dL (8.6-10.3); Carbon Dioxide 29 mEq/L (23-29); Chloride 105 mEq/L (98-107); Glucose 104 mg/dL (70-105); Osmolality,Calculated 289 (280-300); Potassium 3.8 mEq/L (3.5-5.1); Sodium 139 mEq/L (136-145); eGFR For Non-African Americans > 60 (> 60)
[2018-08-05] MEDS ORDERED: Heparin 1,000 UNITS/500 mL 500 ML ONE (07:08)
[2018-08-05] MEDS ORDERED: *HR* Heparin 10,000 UNIT/10 ML VIAL ONE (07:08)
[2018-08-05] MEDS ORDERED: ISOVUE-370 200 ML INFUS..BTL IV ONE (07:08)
[2018-08-05] MEDS ORDERED: 0.9 % Sodium Chloride 1,000 ML ONE ×2 (07:08→07:09)
[2018-08-05] MEDS ORDERED: Nitroglycerin 1,000 MCG/10 ML VIAL IV ONE (07:08)
[2018-08-05] MEDS ORDERED: *HR* FentaNYL (PF) 100 MCG/2 ML VIAL ONE (08:04)
[2018-08-05] MEDS ORDERED: *HR* Midazolam HCl 2 MG/2 ML VIAL ONE (08:04)
[2018-08-05] MEDS ORDERED: Tirofiban 12.5 MG/250ML 12.5 MG/250 ML BAG ONE (08:07)
--- NOTE | 2018-08-05 08:14 | Pre-Sedation Evaluation ---
Pre-sedation evaluation - Pre-sedation checklist Date of procedure: 08/05/18 Procedure: [facility] Recent Vitals: Last Vital Signs Temp 98.2 F 08/05/18 07:21 Pulse 87 08/05/18 07:21 Resp 18 08/05/18 07:21 BP 147/85 08/05/18 07:21 Pulse Ox 93 08/05/18 07:21 H&P (including ROS) documented in medical record: Yes Previous reaction to sedatives/anesthetics: No Dietary Status: NPO after Midnight Dentition: No loose teeth or bridges ASA Classification *see protocol: CLASS II-Mild systemic disease Cardiac Registry (Cardio Only) - Functional Capacity Functional Capacity: >=4 METS with symptoms - Clincal Frailty Scale Clinical Frailty Scale: Vulnerable
--- NOTE | 2018-08-05 09:06 | Invasive Diagnostic Lab Proc ---
Name: Julianne Parry Date of Study: 08/05/2018 Date: 1945 Ht: 64.2in Medical Record#: [id number] Age: 72 Wt: 167.77lb Gender: Female BSA: 1.82 Order #: [id number] BMI: 28.64 Physicians Procedure Physician: Mateo Ferreira MD Referring MD: Referring MD: Staff Name Position Time In Allegra Corcoran RT (R) Monitor 08:18 AM Yomi Lul RT (R) Scrub 08:18 AM Lisa Moran RN Curbing Stonecutter 08:18 AM Indications Indication Unstable Angina Procedures Performed Procedure L HRT ARTERY/VENTRICLE ANGIO Pre-Procedure Checklist Informed consent is complete signed and on chart. H&P is on chart. ID band is on and ID verified with patient. Patient NPO for procedure The procedure was described for the patient and questions were answered. Blood Pressure: 134/82 ECG is on chart. Plan of Care Patient will tolerate the procedure without complications. Adequate level of comfort will be maintained. Hemodynamics will remain stable Patient will recover from procedure without complications. Respiratory function will be maintained. Cardiac rhythm will remain stable. Patient temperature will be maintained. Patient and/or family have verbalized understanding of the procedure. Patient Education Chief Complaint/Reason for Test: Cardiac Cath Developmental Category: Adult (18-64 years) Developmentally Appropriate for Age: Yes Learning Barriers: None Education Needs: Procedure Education Method: Verbal Information Taught: Cardiac Cath Educational Evaluation: Able to repeat information Intravenous Access Time IV Size Location DC'd Fluid/Drip Rate Units RN 20g 1 /" Patent On Arrival Rt Femoral 0.9NaCl 25 ml/hr Allergies Zoledronic Acid Polymyxin B Trimethoprim BEXTRA FOSAMAX STATINS Nsaid Valdecoxib water for injection,sterile mannitol sulfamethoxazole NSAIDS (Non-Steroidal Anti-Inflamma Dcyzetx-Sdp-Orh Reductase Inhibitor Vital Signs Time BP (mmHg) HR (bpm) O2 Sat. RR (bpm) LOC 07:25 AM 134 / 82 76 94 % 16 5 = Fully awake and oriented or at pre-proc level 08:19 AM / % 4 = Oriented but drowsy 08:14 AM 172 / 90 91 99 % 17 08:19 AM 173 / 94 91 98 % 9 08:24 AM 166 / 92 94 99 % 7 08:29 AM 161 / 98 96 100 % 13 08:34 AM 164 / 90 89 98 % 8 08:39 AM 163 / 87 88 98 % 19 08:44 AM 129 / 90 91 99 % 9 08:49 AM 144 / 85 81 % 22 Procedural Medications Time Medication Dose Units Method Given By 08:19 AM Oxygen 2 L/min nasal cannula Lisa Moran RN 08:19 AM Versed 1 mg Intravenous Lisa Moran RN 08:19 AM Fentanyl 50 mcg Intravenous Lisa Moran RN 08:28 AM Lidocaine 2% 10 ml Subcutaneous Mateo Ferreira MD 08:29 AM Versed 0.5 mg Intravenous Lisa Moran RN 08:29 AM Fentanyl 25 mcg Intravenous Lisa Moran RN 08:33 AM Lidocaine 2% 10 ml Subcutaneous Mateo Ferreira MD 08:35 AM Versed 0.5 mg Intravenous Lisa Moran RN 08:35 AM Fentanyl 25 mcg Intravenous Lisa Moran RN ASA Classification: CLASS II- Mild systemic disease (i.e. well-controlled diabetes, hypertension, asthma, cigarette smoking) Jessica Score Preprocedure Postprocedure Activity 2- Moves 4 extremities sustained head lift Activity 2- Moves 4 extremities sustained head lift Circulation 2- SBP +/= 20 points of pre-anesthetic level Circulation 2- SBP +/= 20 points of pre-anesthetic level Consciousness 2- Awake and alert oriented x 3 Consciousness 2- Awake and alert oriented x 3 O2 Saturation 2- Able to maintain O2 satruation of 92% on room air O2 Saturation 2- Able to maintain O2 satruation of 92% on room air Respiratory 2- Able to deep breathe and cough well Respiratory 2- Able to deep breathe and cough well Total Score 10 Total Score 10 Contrast Agent: Isovue Diagnostic Contrast: 41 ml Total Contrast: 41 ml Fluoro Dose: 2 mGy Procedure Log Time Note Enter By 08:13 AM Vitals capture started with the following parameters, Patient=Adult, Interval=5 min, Initial Hiifddim=816 mmHg, Deflation Rate=5 mmHg, Cuff placed on Right Arm 08:13 AM Case Start 08:13 AM CathStat 08:14 AM HR=91 bpm, VJQB=246/90 mmhg, SpO2=99.0 %, Resp=17 B/min, EtCO2=38 mmHg, Comment=NSR 08:16 AM Recorded ECG: HR=90 Condition=Condition 1 08:17 AM Pressure channel 1 zeroed. 08:18 AM Pt arrived to [facility] 2 at 08:17 scoates 08:18 AM Allegra Corcoran RT (R) Position: Monitor Time in: 08:18 scoates 08:18 AM Lul Celaya RT (R) Position: Scrub Time in: 08:18 scoates 08:18 AM Lisa Moran RN Position: Curbing Stonecutter Time in: 08:18 scoates 08:18 AM Patient charges- Angio tray pack, Navilyst 3mm J, Pulse Oximetry and ACIST tubing and transducer scoates 08:18 AM IV Supplies used: J loop Angio Cath. scoates 08:18 AM Case Delayed No scoates 08:18 AM Hair removed from procedure site in holding area using clippers. Bilateral groin prepped with Chloraprep by Allegra Corcoran RT (R), then patient was draped. Skin intact. scoates 08:19 AM Physician arrived 08:18 scoates 08:19 AM ASA Class CLASS II- Mild systemic disease (i.e. well-controlled diabetes, hypertension, asthma, cigarette smoking) scoates 08:19 AM Meet and greet completed scoates 08:19 AM Sign in performed according to hospital policy. scoates 08:19 AM Procedure start 08:19 scoates 08:19 AM Time: 08:19 Oxygen on at 2 L/min per nasal cannula by Lisa Moran RN scoates 08:19 AM Time: 08: Versed 1 mg Intravenous Given by Lisa Moran RN scoates 08:19 AM HR=91 bpm, SYPS=183/94 mmhg, SpO2=98.0 %, Resp=9 B/min, EtCO2=38 mmHg, Comment=NSR 08:19 AM Time: 08:19 Fentanyl 50 mcg Intravenous Given by Lisa Moran RN scoates 08:19 AM Time: 08:19 Patient comfortable and pain free: Yes scoates 08:19 AM Time: 08:19LOC: 4 = Oriented but drowsy scoates 08:24 AM HR=94 bpm, BGDN=204/92 mmhg, SpO2=99.0 %, Resp=7 B/min, Comment=NSR 08:28 AM Time out performed according to hospital policy [email or web address] 08:28 AM Time: 08: 10 ml Lidocaine 2% to right groin Subcutaneous Given by Mateo Ferreira MD [email or web address] 08:29 AM Time: 08: Versed 0.5 mg Intravenous Given by Lisa Moran RN [email or web address] 08:29 AM HR=96 bpm, TEMX=680/98 mmhg, CzE8=770.0 %, Resp=13 B/min, EtCO2=38 mmHg, Comment=NSR 08: AM Time: 08:29 Fentanyl 25 mcg Intravenous Given by Lisa Moran RN [email or web address] 08:29 AM Unsuccessful access attempt # 1 into the right Femoral artery. Manual pressure applied to achieve hemostasis.. [email or web address] 08:30 AM Micro-Introducer Kit utilized for sheath placement [email or web address] 08:30 AM 3 mls contrast injected into Rt groin. [email or web address] 08:33 AM Unsuccessful access attempt # 2 into the right Femoral artery. Manual pressure applied to achieve hemostasis.. [email or web address] 08:34 AM Time: 08:33 10 ml Lidocaine 2% to right groin Subcutaneous Given by Mateo Ferreira MD [email or web address] 08:34 AM HR=89 bpm, FUNI=046/90 mmhg, SpO2=98.0 %, Resp=8 B/min, EtCO2=35 mmHg, Comment=NSR 08:35 AM Time: 08:35 Versed 0.5 mg Intravenous Given by Lisa Moran RN [email or web address] 08:35 AM Time: 08:35 Fentanyl 25 mcg Intravenous Given by Lisa Moran RN [email or web address] 08:36 AM micropuncture sheath inserted. [email or web address] 08:36 AM 3 mls contrast injected into Rt groin. [email or web address] 08:37 AM Access obtained by percutaneous puncture. 6Fr 10cm Terumo [place] sheath placed in right Femoral artery. [id number] [email or web address] 08:37 AM 0.035 145cm Navilyst 3mmJ wire [id number] [email or web address] 08:37 AM 5Fr FR 4 catheter inserted over the wire [facility] [email or web address] 08:38 AM Pressure channel 1 zeroed. 08:39 AM Recorded Pressure: Ao, HR=87, Condition=Condition 1 (Aorta) Ao 163/77/118 08:39 AM HR=88 bpm, SFGX=476/87 mmhg, SpO2=98.0 %, Resp=19 B/min, Comment=NSR 08:39 AM Recorded Pressure: Ao, HR=86, Condition=Condition 1 (Aorta) Ao 170/74/123 08:39 AM RCA angiography performed in multiple views. [email or web address] 08:39 AM Coronary Dominance: right [email or web address] 08:40 AM Catheter removed [email or web address] 08:40 AM 5Fr FL 4 catheter inserted over the wire DNC [email or web address] 08:40 AM LCA angiography performed in multiple views. [email or web address] 08:41 AM Recorded Pressure: Ao, HR=87, Condition=Condition 1 (Aorta) Ao 146/85/114 08:42 AM Catheter removed [email or web address] 08:43 AM 5Fr Pigtail catheter inserted over the wire DN [email or web address] 08:43 AM Catheter selectively placed in left ventricle [email or web address] 08:44 AM Recorded Pressure: LV, HR=96, Condition=Condition 1 (Left Ventricle) LV 164/13/81 08:44 AM HR=91 bpm, PJFB=071/90 mmhg, SpO2=99.0 %, Resp=9 B/min, Comment=NSR 08:44 AM Recorded Pressure: LV, Ao, HR=94, Condition=Condition 1 (Left Ventricle) LV 172/15/22, (Aorta) Ao 173/79/125 08:44 AM Catheter removed [email or web address] 08:45 AM Procedure completed at 08:45 08/05/2018 [email or web address] 08:46 AM Did you address GERBER flow and Dominance? Yes [email or web address] 08:46 AM Sign out completed: Radiation Dose 188.82 mGy, 2022.43 cGy/cm2 Fluoro Time: 1.8 Isovue 370 - 200ml contrast 40.9 ml given by Mateo Ferreira MD. Complications: NoneCardiac Rehab Consult needed: NoConfirmed administered medications: Yes [email or web address] 08:47 AM Isovue 370 - 200ml,1 Bottle(s) used. [email or web address] 08:47 AM Arterial sheath pulled, Angio-seal closure device used and was Successful S/N. [email or web address] 08:47 AM Estimated Blood Loss: minimal [email or web address] 08:47 AM Post ECG NSR [email or web address] 08:48 AM Post Blood Pressure 129/90 [email or web address] 08:48 AM Information taught Cardiac Cath and Angioseal [email or web address] 08:48 AM Education needs Procedure, Disease Process, and Plan of Care [email or web address] 08:48 AM Learning barriers :None [email or web address] 08:48 AM Education Methods Verbal [email or web address] 08:48 AM Education evaluation Able to repeat information [email or web address] 08:48 AM Site status No bleeding/hematoma - Rt Groin as reported by Lul Celaya RT (R) at 08:48 [email or web address] 08:48 AM Opsite applied [email or web address] 08:48 AM Delay to floor No [email or web address] 08:48 AM Family placed in consult room. [email or web address] 08:48 AM Complications: None [email or web address] 08:49 AM HR=81 bpm, LGEL=663/85 mmhg, Resp=22 B/min 08:52 AM Patient having rt groin discomfort at this time. [email or web address] 08:53 AM Site feels soft and no visible bleeding noted per Lul Celaya RTR. [email or web address] 08:58 AM Report given to Ana QUEEN Pt taken to 3B Room #34. 08:57 [email or web address] 08:58 AM Patient out of room: 08:58 [email or web address] 08:58 AM Complications: None [email or web address] Complications Complication None None None Hemodynamics Pressures Site Systolic/A Wave Diastolic/V Wave Mean AO 163 77 118 AO 170 74 123 AO 146 85 114 LV 164 13 81 LV 172 15 22 AO 173 79 125 Post Procedure Information Blood Pressure: 129/90 mmHg Rhythm: NSR Post procedural instructions were given Closure Device Time Device Success/Fail 08/05/2018 8:49:00 AM Angio-Seal VIP Successful Site Checks Time Location Status Staff Sheath In? Note 08:48 AM Rt Groin No bleeding/hematoma Lul Celaya RT (R) Pulses Time Site Pre-Procedure Post-Procedure Note 08/05/2018 8:50:00 AM Bilateral DP & PT 1+ 1+ Updated by DANIEL HollinsR) on 08/05/2018 8:58:51 AM electronically signed on 08/05/2018 8:59:16 AM with status of Final
--- NOTE | 2018-08-05 09:40 | Event Note ---
Date of Encounter: 08/05/18 Time of Encounter: 09:39 - Cardiology Event Note [facility] this AM showed minimal disease. Cardiology signing off. Reconsult PRN. Continue ASA 81mg daily. Will add low dose BB and Statin.
[2018-08-05] MEDS ORDERED: Acetaminophen 325 MG TABLET PO PRN (09:44)
[2018-08-05] MEDS: Loratadine 10 MG TABLET PO SCH (14:02)
[2018-08-05] MEDS: Multivit/Ca/Min/Fe/FA 1 TAB TABLET PO SCH (14:02)
[2018-08-05] MEDS: Aspirin 81 MG TAB.CHEW PO SCH (14:02)
[2018-08-05] MEDS: Gabapentin 300 MG CAPSULE PO SCH ×2 (14:03→14:31)
[2018-08-05] MEDS: ALPRAZolam 0.5 MG TABLET PO SCH (14:03)
[2018-08-05] MEDS: Cholecalciferol (D-3) 1,000 UNIT TABLET PO SCH ×2 (14:05→14:11)
--- NOTE | 2018-08-05 15:56 | Discharge Summary ---
- NOTES TO OUTPATIENT PROVIDER Notes to Outpatient Provider: had cardiac cath which showed minimal disease Cont ASA BB Orders not resulted at time of discharge: Pending orders 08/03/18 06:00 NM jessica perf SPECT multi [NM] Routine 08/04/18 14:59 Left Heart Cath [CL Cardiac Catheterization] [CL] Routine Date of Encounter: 08/05/18 Time of Encounter: 15:54 - Discharge Diagnosis (1) Chest pain Priority: Primary Status: Acute Qualifiers: Chest pain type: unspecified Qualified Code(s): R07.9 - Chest pain, unspecified (2) UTI (urinary tract infection) Priority: Secondary Status: Acute Qualifiers: Urinary tract infection type: site unspecified Hematuria presence: without hematuria Qualified Code(s): N39.0 - Urinary tract infection, site not specified Hospital course: Ms. Jluis Lester is a 72 year old female with no significant history presented to [facility] ED with complaints of CP associated sx of SOB diaphoresis nausea palpitations and tachycardia . She was recently treated for UTI Troponin negative x3 EKG with no ST t wave abnormality Urinalysis positive nitrates and leukocyte esterase was given 2 days of Rocephin- culture with no growth. Echo shows LVEF 60% Stress showed resting ECG normal sinus rhythm, no arrhythmias during stress, no chest pain during stress, and non-diagnostic for ischemia due to the presence of artifact throughout exercise. Normal Hemodynamic response. Apparently patient was going to be discharged and developed CP Cardiology consulted and underwent LHC which show minimal disease Cardiology recommends cont ASA BB statin- patient allergic to statin. Advised patient to follow up with PCP No bleeding from access site She is hemodynamically stable and ready for discharge - Time Spent with Patient Total time spent providing and/or coordinating discharge services: - Discharge Medications Prescriptions: Aspirin 81 mg PO DAILY #30 tab.chew Metoprolol [Lopressor] 25 mg PO BID #30 tablet Home Medications: Albuterol Sulfate [Albuterol Inhaler] 2 puff IH Q4HR PRN 12/21/15 [History] Docusate [Colace] 100 mg PO BID 12/21/15 [History] Citalopram Hydrobromide [Celexa] 40 mg PO HS 05/08/16 [History] ALPRAZolam [Xanax 0.5 MG Tablet] 0.5 mg PO BID 07/04/17 [History] Cetirizine HCl [Zyrtec] 10 mg PO DAILY 07/04/17 [History] Gabapentin [Neurontin] 300 mg PO TID 07/04/17 [History] Cyclobenzaprine [Flexeril] 10 mg PO TID PRN #14 tablet 11/13/17 [Rx] Cholecalciferol (D-3) [Vitamin D] 2,000 unit PO DAILY 08/02/18 [History] Multivitamin [One Daily Essential] 1 tab PO DAILY 08/02/18 [History] Aspirin 81 mg PO DAILY tab.chew 08/03/18 [Rx] Aspirin 81 mg PO DAILY #30 tab.chew 08/05/18 [Rx] Metoprolol [Lopressor] 25 mg PO BID #30 tablet 08/05/18 [Rx] Allergies/Adverse Reactions: 3 Allergy/AdvReac Type Severity Reaction Status Date / Time mannitol [From Reclast] Allergy Hives Verified 05/06/18 08:43 polymyxin B Allergy Rash Verified 05/06/18 08:43 sulfamethoxazole Allergy Rash Verified 05/06/18 08:43 [From Bactrim] trimethoprim [From Bactrim] Allergy Rash Verified 05/06/18 08:43 water for injection,sterile Allergy Hives Verified 05/06/18 08:43 [From Reclast] zoledronic acid Allergy Hives Verified 05/06/18 08:43 [From Reclast] valdecoxib AdvReac Mild raised bp Verified 05/06/18 08:43 Amoxicillin AdvReac See Verified 05/06/18 08:43 Comments NSAIDS (Non-Steroidal AdvReac Nausea Verified 05/06/18 08:43 Anti-Inflamma Uqoyewk-Lsz-Sac Reductase AdvReac Nausea Verified 05/06/18 08:43 Inhibitor [Statins] Date of admission: 08/02/18 17:17 Primary care physician: Jennifer Gautam Consults: 08/03/18 15:43 Consult to Cardiology [CONS] Routine Comment: Consulting Provider: Altagracia Porter Reason for Consult: chest pain Time Notified: 15:43 Call Completed: Yes 08/04/18 11:59 Consult to Cardiology [CONS] Routine Comment: Consulting Provider: Cardiology [place] Reason for Consult: order reentered.,, pt to have C today. Call Completed: Yes Discharging clinician: Melissa Stoner Anticipated date of discharge: 08/05/18 - Constitutional Vitals: Temp Pulse Resp BP Pulse Ox 97.9 F 83 17 132/83 96 08/05/18 11:39 08/05/18 13:28 08/05/18 11:39 08/05/18 13:28 08/05/18 13:28 General appearance: Present: A&O X 3 Exam: see above - Head Head exam: Present: atraumatic, normocephalic - Eye Eye exam: Present: PERRL, conjuntiva pink, sclera anicteric Pupils: Present: PERRL - Neck Neck exam general surgery: Present: supple, trachea midline. Absent: lymphadenopathy - Respiratory Respiratory exam: Present: CTAB. Absent: accessory muscle use, rales, rhonchi, wheezes - Cardiovascular Cardiovascular exam: Present: RRR, +S1, +S2. Absent: diastolic murmur, gallop, rubs, systolic murmur - GI/Abdominal GI/Abdominal exam: Present: normal bowel sounds, soft, no peritoneal signs. Absent: distended, tenderness - Extremities Exam Extremities exam: Present: warm, radial pulses palpable and symmetrical. Absent : calf tenderness, cyanotic, pedal edema - Neurological Exam Neurological exam: Present: CN II-XII intact, oriented X3, no focal deficits. Absent: pronater drift, facial droop, speech deficit - Skin Skin exam: Present: dry, intact - Patient Status Disposition: Home, Self-Care Condition: Fair Functional capacity at discharge: independent ambulation Overall status at discharge: patient is back to baseline - Discharge Instructions Instructions: Chest Pain (DC), Urinary Tract Infection in Women (DC) Follow Up With: Jennifer Gautam MD [Primary Care Provider] - 08/12/18 1:45 pm (Requested a follow up appointment in 7-10 days, with Jennifer Gautam. ) - Diet and Activity Activity: increase activity as tolerated Diet: low fat, low cholesterol
[2018-08-05 17:05] VITALS: BP 124/82
== END 2018-08-05 18:15 | disposition home or self-care (01) ==
LOC: 3BNU 15:09 → EMEROOARM 15:09 → 3BNU 17:45
PROVIDERS: ADMIT Internal Medicine; ATTEND Internal Medicine

== ENCOUNTER 2018-10-22 03:32 | Inpatient (IN) ==
[2018-10-22] MEDS ORDERED: methylPREDNISolone 125 MG/2 ML VIAL IVP ONE (03:42)
[2018-10-22] MEDS ORDERED: Ipratropium/Albuterol Neb 3 ML IH ONE ×2 (03:42→05:00)
--- NOTE | 2018-10-22 03:54 | Emergency Department Note ---
Disposition Clinical Impression: Acute exacerbation of chronic obstructive airways disease Disposition: Admitted As Inpatient Condition: Good General Adult HPI - General Chief complaint: ED Shortness of Breath/Dyspnea Stated complaint: SOB Time Seen by Provider: 10/22/18 03:40 Source: patient, family Limitations: no limitations Nursing Notes Reviewed: Yes Vital Signs Reviewed: Yes - History of Present Illness HPI Narrative: 72-year-old female presents emergency department with concern for cough, congestion for last several days. Reports that today, she started having increasing shortness of breath. Patient reports she used to be a smoker in the past, but no truly diagnosed COPD. Patient was admitted to the hospital a few months ago and had an extensive workup including echocardiogram of heart catheterization or completely normal. Patient denies any fevers, does report cough, sputum production. She denies any nausea, vomiting, abdominal pain. Patient denies any chest pain, pressure, tightness. Pain Scale: 0 - Related Data Home Medications Medication Instructions Recorded Confirmed RX: Albuterol Sulfate [Albuterol 2 puff IH Q4HR PRN 12/21/15 08/02/18 Inhaler] RX: Docusate [Colace] 100 mg PO BID 12/21/15 08/02/18 RX: Citalopram Hydrobromide 40 mg PO HS 05/08/16 08/02/18 [Celexa] RX: ALPRAZolam [Xanax 0.5 MG 0.5 mg PO BID 07/04/17 08/02/18 Tablet] RX: Cetirizine HCl [Zyrtec] 10 mg PO DAILY 07/04/17 08/02/18 RX: Gabapentin [Neurontin] 300 mg PO TID 07/04/17 08/02/18 RX: Cholecalciferol (D-3) [Vitamin 2,000 unit PO DAILY 08/02/18 08/02/18 D] RX: Multivitamin [One Daily 1 tab PO DAILY 08/02/18 08/02/18 Essential] Previous Rx's Medication Instructions Recorded RX: Cyclobenzaprine [Flexeril] 10 mg PO TID PRN #14 tablet 11/13/17 RX: Aspirin 81 mg PO DAILY tab.chew 08/03/18 RX: Aspirin 81 mg PO DAILY #30 tab.chew 08/05/18 RX: Metoprolol [Lopressor] 25 mg PO BID #30 tablet 08/05/18 Allergies Allergy/AdvReac Type Severity Reaction Status Date / Time mannitol [From Reclast] Allergy Hives Verified 10/22/18 03:33 polymyxin B Allergy Rash Verified 10/22/18 03:33 sulfamethoxazole Allergy Rash Verified 10/22/18 03:33 [From Bactrim] trimethoprim [From Bactrim] Allergy Rash Verified 10/22/18 03:33 water for injection,sterile Allergy Hives Verified 10/22/18 03:33 [From Reclast] zoledronic acid Allergy Hives Verified 10/22/18 03:33 [From Reclast] valdecoxib AdvReac Mild raised bp Verified 10/22/18 03:33 Amoxicillin AdvReac See Verified 10/22/18 03:33 Comments NSAIDS (Non-Steroidal AdvReac Nausea Verified 10/22/18 03:33 Anti-Inflamma Wbaifmk-Ast-Wfj Reductase AdvReac Nausea Verified 10/22/18 03:33 Inhibitor [Statins] All systems ED: reviewed and negative except as stated. Review of Systems: As Per HPI Constitutional: Denies: fever Cardiovascular: Denies: chest pain Respiratory: Reports: cough, dyspnea, wheezes Gastrointestinal: Denies: abdominal pain, nausea, vomiting Genitourinary: Denies: dysuria Past Medical History - Past Medical History Medical history: Reports: COPD, hyperlipidemia, hypertension, other Surgical history: Reports: cholecystectomy, hysterectomy Psychiatric history: Reports: anxiety, depression TRAVEL REGISTERED NURSE PACU history: Reports: no TRAVEL REGISTERED NURSE PACU history - Social History Smoking Status: Former smoker Smokeless Tobacco Status: No Alcohol use: Reports: none Drug use: Reports: none Physical Exam - General Limitations: no limitations General appearance: alert, other (Oxygen saturation 89% on room air) - Head Head exam: normocephalic - Eye Eye exam: Present: EOMI - ENT ENT exam: mucous membranes moist - Neck Neck exam: Present: trachea midline - Chest Chest inspection: Present: symmetric chest wall rise - Respiratory Respiratory exam: Present: normal lung sounds bilaterally, wheezes (Diffuse wheezes throughout.). Absent: respiratory distress, accessory muscle use - Cardiovascular Cardiovascular exam: Present: normal rhythm, tachycardia, normal heart sounds - Abdominal Exam Abdominal exam: Present: soft, Non-Tender. Absent: distention, guarding, rebound, rigidity - Extremities Exam Extremities exam: Present: normal capillary refill. Absent: calf tenderness - Back Exam Back exam: Present: full ROM - Neurological Exam Neurological exam: Present: alert, oriented X3 - Psychiatric Psychiatric exam: Present: normal affect, normal mood - Skin Skin exam: Present: warm, dry, intact, normal color. Absent: rash Course Vital Signs Temperature 98.1 F 10/22/18 03:33 Pulse Rate 114 10/22/18 03:33 Respiratory Rate 20 10/22/18 03:33 Blood Pressure 148/62 10/22/18 03:33 O2 Sat by Pulse Oximetry 87 10/22/18 03:33 Temperature 98.1 F 10/22/18 03:33 Pulse Rate 111 10/22/18 05:14 Respiratory Rate 20 10/22/18 05:14 Blood Pressure 138/69 10/22/18 05:14 O2 Sat by Pulse Oximetry 97 10/22/18 05:14 Oxygen Delivery Oxygen Delivery Nasal Cannula Medical Decision Making - MDM Narrative Medical decision making narrative: 72-year-old female presents emergency department with concern for shortness of breath. Patient initially 89% on room air. She had wheezes on lung exam. Patient was given DuoNeb's and supplemental oxygen. Patient said that these hel ped out tremendously. After DuoNeb administration, patient had decreased wheezes throughout. Patient oxygen saturation was 96% on 4 L via nasal. EKG not reveal any ischemic ST changes. Troponin was negative. Chest x-ray reveals possible left pleural effusion. At this time, due to increasing sputum production with cough and hypoxia, we will cover patient with Levaquin. Patient hemodynamically stable at time of admission to hospitalist, Dr. Hall who agreed to accept her. Chest X-Ray 10/22/18 03:42 IMPRESSION: Low left lung volume with left basilar consolidation which may relate to atelectasis. Underlying infectious/inflammatory process is not excluded. Possible left pleural effusion. D/ / Gordon Sessions / Gordon Sessions Interpreting Provider: Gordon Sessions - Lab Data Result diagrams: 10/22/18 04:03 10/22/18 04:03 Lab Results 10/22/18 10/22/18 10/22/18 Range/Units 04:03 04:03 04:03 WBC 5.6 (4.3-11.1) K/mcL RBC 3.95 (3.82-4.97) M/mcL Hgb 12.6 (11.5-15.4) g/dL Hct 38.0 (35.3-44.9) % MCV 96.2 (83.0-100.0) fL MCH 31.9 (28.0-33.3) pg MCHC 33.2 (31.6-35.5) g/dL RDW 12.4 (11.5-14.5) % Plt Count 113 L (140-400) K/mcL MPV 9.5 (9.4-12.4) fL Immature Gran % 0.4 (0-4) % Seg Neutrophils % 64.3 % Lymphocytes % 21.6 % Monocytes % 8.9 % Eosinophils % 4.3 % Basophils % 0.5 % Neutrophils # 3.6 (1.6-8.9) K/mcL Lymphocytes # 1.2 (0.6-4.6) K/mcL Monocytes # 0.5 (0.0-1.3) K/mcL Eosinophils # 0.2 (0.0-0.6) K/mcL Basophils # 0.0 (0.0-0.2) K/mcL Sodium 137 (136-145) mEq/L Potassium 3.8 (3.5-5.1) mEq/L Chloride 103 (98-107) mEq/L Carbon Dioxide 24 (23-29) mEq/L BUN 13 (8-23) mg/dL Creatinine 0.97 (0.60-1.20) mg/dL Est GFR ( Amer) > 60 (> 60) Est GFR (Non-Af Amer) 56 L (> 60) BUN/Creatinine Ratio 13 (6-26) Glucose 121 H (70-105) mg/dL Calculated Osmolality 285 (280-300) Calcium 8.8 (8.6-10.3) mg/dL Troponin I 0.03 (< 0.04) ng/mL - Radiology Data Radiology results reviewed: Yes I reviewed the patient's radiology results. - EKG Data EKG #1 EKG attestation: Yes I reviewed and interpreted this EKG. EKG results narrative: Heart rate 102 bpm, CT interval 175 ms, QRS duration 80 ms, QT 341 ms, normal axis. Sinus tachycardia. No Ischemic ST changes on this EKG. Critical Care Time Critical Care Time: Yes Total Critical Care Time: 34 Attestation: Hypoxia w respiratory distress; Attestation Statement - Attestation Attestation: DR Mitchell note: Patient was seen in conjunction with resident Dr. Stokes. Please see his charting for complete documentation. Assessment [id number] time with the patient and I agree with the patient's treatment and disposition. Hypoxia noted; increasing sx for the past 2 wk; fever at home; former smoker; left base infiltrate/effusion noted on x ray; will require admission due to her hypoxia; pt is not on home 02; labs reviewed;
[2018-10-22 04:16] LABS: Basophils % 0.5 %; Eosinophils # 0.2 K/mcL (0.0-0.6); Eosinophils % 4.3 %; Hemoglobin 12.6 g/dL (11.5-15.4); Immature Granulocytes % 0.4 % (0-4); Lymphocytes # 1.2 K/mcL (0.6-4.6); Lymphocytes % 21.6 %; Mean Corpuscular HGB Conc 33.2 g/dL (31.6-35.5); Mean Corpuscular Hemoglobin 31.9 pg (28.0-33.3); Mean Corpuscular Volume 96.2 fL (83.0-100.0); Mean Platelet Volume 9.5 fL (9.4-12.4); Monocytes # 0.5 K/mcL (0.0-1.3); Monocytes % 8.9 %; Neutrophils # 3.6 K/mcL (1.6-8.9); Platelet Count 113 K/mcL (140-400); Red Blood Count 3.95 M/mcL (3.82-4.97); Red Cell Distribution Width 12.4 % (11.5-14.5); Segmented Neutrophils % 64.3 %
[2018-10-22 04:35] LABS: BUN/Creatinine Ratio 13 (6-26); Blood Urea Nitrogen 13 mg/dL (8-23); Calcium 8.8 mg/dL (8.6-10.3); Carbon Dioxide 24 mEq/L (23-29); Chloride 103 mEq/L (98-107); Glucose 121 mg/dL (70-105); Osmolality,Calculated 285 (280-300); Potassium 3.8 mEq/L (3.5-5.1); Sodium 137 mEq/L (136-145); eGFR For Non-African Americans 56 (> 60)
[2018-10-22] MEDS ORDERED: Levofloxacin 750 MG/150 ML 750 MG/150 ML BAG IVPB ONE (05:13)
[2018-10-22] MEDS ORDERED: Naloxone 0.4 MG/ML INJ IVP PRN (06:33)
[2018-10-22] MEDS ORDERED: Albuterol 2.5 MG/3 ML NEBULIZER IH PRN (06:34)
--- NOTE | 2018-10-22 06:42 | Internal Med History&Physical ---
Date of Encounter: 10/22/18 Time of Encounter: 06:00 Internal Medicine - H&P: HPI Chief complaint: COPD exacerbation Admitted From: Emergency Dept Plans for Post Hospital Care: Home History of present illness: Ms. Bazzi is a 72 year old female Patient presented to the emergency room at the behest of her daughter after dealing with shortness of breath and cough for 1 week. She states she saw her doctor about a month ago and was diagnosed with bronchitis and put on Cefdinir. Patient's symptoms did not improve, and last night patient became because she could not read, had no home O2 nor breathing treatments available to her. She had tried Tylenol, [place] pot and completed the course of antibiotics but had no improvement. In the emergency room patient's CBC and BMP were within normal limits, troponin was undetectable. Chest x-ray showed left basilar consolidation of which infectious/inflammatory process could not be excluded. She was given breathing treatments, as well as IV steroids and was started on Levaquin. Blood cultures were not drawn in the ER prior to antibiotics. She was sent to the medical floor for further management. Upon my evaluation, patient states she is feeling better. She denies nausea, vomiting, diarrhea, constipation, chest pain and abdominal pain. She says that she has a significant smoking history of about 30 years but quit in 1993. She has been told by multiple doctors that she has COPD but does not think she has been officially diagnosed. She recently was in the hospital for chest pain, had a left heart catheter performed but no stents. Past Med Surg Social Fam HX - Past Medical History Medical history: COPD, hyperlipidemia, hypertension, other Additional medical history: TMJ, interstitial cystitis, left knee osteoarthritis, basal cell carcinoma left leg Psychiatric history: anxiety, depression - Past Surgical History Surgical History: cholecystectomy, hysterectomy Additional surgical history: left eye, egd,colonoscopy hemorrhoidectomy/rectal prolapse. hysterectomy. appendectomy. T&A. Laparoscopy, rotator cuff surgery. ACDF C5-7. colonoscopy-pos for polyps. EGD - Social History Smoking Status: Former smoker Smokeless Tobacco Status: No Alcohol use: none Drug use: none - Family History Father Hx Family Cardiac Disorders: Yes (CAD) Mother Living Status: Hx Family Cardiac Disorders: Yes ([place]) Hx Family Neurologic Disorders: Yes (dementia) Internal Medicine - H&P: Meds Albuterol Sulfate [Albuterol Inhaler] 2 puff IH Q4HR PRN 12/21/15 [History] Docusate [Colace] 100 mg PO BID 12/21/15 [History] Citalopram Hydrobromide [Celexa] 40 mg PO HS 05/08/16 [History] ALPRAZolam [Xanax 0.5 MG Tablet] 0.5 mg PO BID PRN 07/04/17 [History] Cetirizine HCl [Zyrtec] 10 mg PO DAILY 07/04/17 [History] Gabapentin [Neurontin] 600 mg PO TID 07/04/17 [History] Cyclobenzaprine [Flexeril] 10 mg PO TID PRN #14 tablet 11/13/17 [Rx] Cholecalciferol (D-3) [Vitamin D] 1,000 unit PO DAILY 08/02/18 [History] Multivitamin [One Daily Essential] 1 tab PO DAILY 08/02/18 [History] Aspirin 81 mg PO DAILY #30 tab.chew 08/05/18 [Rx] Metoprolol [Lopressor] 25 mg PO BID #30 tablet 08/05/18 [Rx] Tramadol HCl [Ultram] 50 mg PO HS 10/22/18 [History] Allergy/AdvReac Type Severity Reaction Status Date / Time mannitol [From Reclast] Allergy Hives Verified 10/22/18 03:33 polymyxin B Allergy Rash Verified 10/22/18 03:33 sulfamethoxazole Allergy Rash Verified 10/22/18 03:33 [From Bactrim] trimethoprim [From Bactrim] Allergy Rash Verified 10/22/18 03:33 water for injection,sterile Allergy Hives Verified 10/22/18 03:33 [From Reclast] zoledronic acid Allergy Hives Verified 10/22/18 03:33 [From Reclast] valdecoxib AdvReac Mild raised bp Verified 10/22/18 03:33 Amoxicillin AdvReac See Verified 10/22/18 03:33 Comments NSAIDS (Non-Steroidal AdvReac Nausea Verified 10/22/18 03:33 Anti-Inflamma Qaqjmgj-Lxf-Xeg Reductase AdvReac Nausea Verified 10/22/18 03:33 Inhibitor [Statins] All Systems PM: A 10-system review of systems was performed and is negative for pertinent findings except as documented above in the HPI. - Constitutional Vitals: Temp Pulse Resp BP Pulse Ox 98.1 F 111 20 138/69 97 10/22/18 03:33 10/22/18 05:14 10/22/18 05:14 10/22/18 05:14 10/22/18 05:14 General appearance: Present: cooperative, A&O X 3, pleasant, no acute distress, answers questions appropriately Exam: as above - Head Head exam: Present: normal inspection - Eye Eye exam: Present: EOMI, normal appearance - Neck Neck exam general surgery: Present: full ROM. Absent: tenderness - Respiratory Respiratory exam: Present: wheezes. Absent: decreased breath sounds, rales, respiratory distress, rhonchi - Cardiovascular Cardiovascular exam: Present: RRR. Absent: diastolic murmur, systolic murmur - GI/Abdominal GI/Abdominal exam: Present: normal bowel sounds, soft. Absent: tenderness - Extremities Exam Extremities exam: Present: warm, radial pulses palpable and symmetrical. Absent: calf tenderness, pedal edema, tenderness - Neurological Exam Neurological exam: Present: no focal deficits, strengths equal and symetr throug hout. Absent: motor sensory deficit, facial droop, speech deficit - Skin Skin exam: Present: dry, normal color, warm Internal Med - H&P Results - Labs CBC & Chem 7: 10/22/18 04:03 10/22/18 04:03 Labs: Short CBC 10/22/18 Range/Units 04:03 WBC 5.6 (4.3-11.1) K/mcL Hgb 12.6 (11.5-15.4) g/dL Hct 38.0 (35.3-44.9) % Plt Count 113 L (140-400) K/mcL Neutrophils # 3.6 (1.6-8.9) K/mcL BMP 10/22/18 04:03 Sodium 137 Potassium 3.8 Chloride 103 Carbon Dioxide 24 BUN 13 Creatinine 0.97 Glucose 121 H Calcium 8.8 Cardiac Enzymes 10/22/18 Range/Units 04:03 Troponin I 0.03 (< 0.04) ng/mL - Impressions ITS Impressions Chest X-Ray 10/22/18 03:42 IMPRESSION: Low left lung volume with left basilar consolidation which may relate to atelectasis. Underlying infectious/inflammatory process is not excluded. Possible left pleural effusion. D/ / Gordon Sessions / Gordon Sessions Interpreting Provider: Gordon Sessions Chest X-Ray 10/22/18 05:12 IMPRESSION: Low left lung volume with elevation of the left hemidiaphragm and left basilar consolidation which may relate to atelectasis. No pleural effusion. D/ / Gordon Sessions / Gordon Sessions Interpreting Provider: Gordon Sessions - Assessment and plan (1) Acute exacerbation of chronic obstructive airways disease Current Visit: Yes Status: Acute Assessment and plan: Patient did have wheezing on exam, which improved after breathing treatments and steroids. Does not have home oxygen or breathing treatments at home. Continue oxygen as needed Breathing treatments as needed Treating possible pneumonia as below Continue steroids Continue to monitor (2) Shortness of breath Current Visit: Yes Status: Acute Assessment and plan: Likely secondary to COPD exacerbation. Treatment as above (3) Pneumonia Current Visit: Yes Status: Acute Assessment and plan: Chest x-ray showed left consolidation which could be secondary to inflammatory or infectious process. Patient was started on Levaquin in the ER. Continue antibiotics Monitor for worsening signs of infection Qualifiers: Pneumonia type: due to unspecified organism Laterality: left Lung location: lower lobe of lung Qualified Code(s): J18.1 - Lobar pneumonia, unspecified organism (4) Fibromyalgia Current Visit: Yes Status: Acute Assessment and plan: Chronic, continue home meds (5) DVT prophylaxis Current Visit: No Status: Acute Assessment and plan: Subcutaneous heparin - Time Spent With Patient Total time spent is greater than 50% in coordination of care (as documented) at patient's floor/unit and/or counseling patient: Greater than 35 minutes
[2018-10-22] MEDS: Gabapentin 300 MG CAPSULE PO SCH ×3 (08:13→20:08)
[2018-10-22] MEDS: Aspirin 81 MG TAB.CHEW PO SCH (08:13)
--- NOTE | 2018-10-22 09:25 | Electrocardiograph Report ---
[place] [id number] Test Date: 2018-10-22 Pat Name: Julianne Bazzi Department: EXAM3 Room: 2A12 Gender: F [employer] S[employer]: : 1945 Requested By: Glenn Galindo Order Number: [id number] Reading MD: Kunal Helton Measurements Intervals [place] Rate: 102 P: 53 ID: [id number] QRS: 43 QRSD: 80 T: 62 QT: 341 QTc: 445 Interpretive Statements Sinus tachycardia Low voltage, precordial leads Electronically Signed On 10-22-2018 9:24:26 EST by Kunal Helton
--- NOTE | 2018-10-22 11:29 | Event Note ---
Date of Encounter: 10/22/18 Time of Encounter: 11:27 I have seen and evaluated the patient at bedside. Patient is hemodynamically stable. the shortness of breath reported on admission has improved. will continue steroids, scheduled bronchodilators and IV antibiotics. will continue to monitor.
[2018-10-22] MEDS: Ipratropium/Albuterol Neb 3 ML IH SCH ×3 (11:53→22:39)
[2018-10-22] MEDS: *HR* Heparin 5,000 UNIT/ML VIAL SQ SCH (17:22)
[2018-10-22] MEDS ORDERED: traMADol 50 MG TABLET PO SCH (21:00)
[2018-10-23] MEDS: Ipratropium/Albuterol Neb 3 ML IH SCH ×2 (04:26→10:28)
[2018-10-23] MEDS: *HR* Heparin 5,000 UNIT/ML VIAL SQ SCH (05:47)
[2018-10-23 08:32] LABS: Hematocrit 37.2 % (35.3-44.9); Hemoglobin 12.4 g/dL (11.5-15.4); Mean Corpuscular HGB Conc 33.3 g/dL (31.6-35.5); Mean Corpuscular Volume 96.1 fL (83.0-100.0); Mean Platelet Volume 9.6 fL (9.4-12.4); Platelet Count 136 K/mcL (140-400); Red Blood Count 3.87 M/mcL (3.82-4.97)
[2018-10-23 08:43] LABS: BUN/Creatinine Ratio 25 (6-26); Blood Urea Nitrogen 23 mg/dL (8-23); Calcium 8.9 mg/dL (8.6-10.3); Carbon Dioxide 27 mEq/L (23-29); Chloride 104 mEq/L (98-107); Glucose 108 mg/dL (70-105); Magnesium 2.1 mg/dL (1.6-2.6); Osmolality,Calculated 288 (280-300); Potassium 4.1 mEq/L (3.5-5.1); Sodium 137 mEq/L (136-145); eGFR For Non-African Americans 59 (> 60)
[2018-10-23] MEDS ORDERED: Levofloxacin 750 MG/150 ML 750 MG/150 ML BAG IVPB SCH (09:00)
[2018-10-23] MEDS ORDERED: predniSONE 20 MG TABLET PO SCH (09:00)
[2018-10-23] MEDS: Gabapentin 300 MG CAPSULE PO SCH ×2 (09:36→14:36)
[2018-10-23] MEDS: Aspirin 81 MG TAB.CHEW PO SCH (09:36)
--- NOTE | 2018-10-23 10:25 | Discharge Summary ---
- NOTES TO OUTPATIENT PROVIDER Notes to Outpatient Provider: Follow-up with your primary care physician within a week of hospital discharge. Date of Encounter: 10/23/18 Time of Encounter: 10:21 - Discharge Diagnosis (1) Pneumonia Priority: Secondary Status: Acute Qualifiers: Pneumonia type: due to unspecified organism Laterality: left Lung location: lower lobe of lung Qualified Code(s): J18.1 - Lobar pneumonia, unspecified organism (2) Acute exacerbation of chronic obstructive airways disease Priority: Primary Status: Acute (3) Hyperlipidemia Priority: Secondary Status: Chronic Qualifiers: Hyperlipidemia type: unspecified Qualified Code(s): E78.5 - Hyperlipidemia, unspecified (4) DVT prophylaxis Priority: Secondary Status: Acute Hospital course: Ms. Lester is a 72 year old female past medical history of COPD, hyperlipidemia, and hypertension. Ration presented to the emergency room due to a week long history of shortness of breath. Patient admitted to the hospital due to COPD exacerbation, and pneumonia. A chest x-ray showed left basilar consolidation of which infectious/inflammatory process could not be excluded. Patient was treated with IV antibiotics, bronchodilators and IV steroids. Patient acute symptoms resolved, patient is hemodynamically stable to be discharged home. Patient is being discharged on oral antibiotic to complete 7 days of treatment, and a Medrol Dosepak. During this hospitalization patient qualified for 3 L of oxygen by nasal cannula. Recommended to follow-up with her primary care physician within a week of hospital discharge. - Time Spent with Patient Total time spent providing and/or coordinating discharge services: Greater than 30 minutes (35) - Discharge Medications Prescriptions: Albuterol Neb [Proventil Neb] 2.5 mg IH Q2H PRN 30 Days #2 inhsol PRN Reason: Shortness Of Breath/Wheezing Ipratropium/Albuterol Neb [Duoneb] 3 ml IH QIDR 30 Days #5 inhsol Lactobac Cmb #3/Fos/Pantethine [Probiotic & Acidophilus Cap] 1 each PO BID 6 Days #12 capsule Levofloxacin [Levaquin] 750 mg PO DAILY 6 Days #6 tablet Home Medications: Albuterol Sulfate [Albuterol Inhaler] 2 puff IH Q4HR PRN 12/21/15 [History] Docusate [Colace] 100 mg PO BID 12/21/15 [History] Citalopram Hydrobromide [Celexa] 40 mg PO HS 05/08/16 [History] ALPRAZolam [Xanax 0.5 MG Tablet] 0.5 mg PO BID PRN 07/04/17 [History] Cetirizine HCl [Zyrtec] 10 mg PO DAILY 07/04/17 [History] Gabapentin [Neurontin] 600 mg PO TID 07/04/17 [History] Cyclobenzaprine [Flexeril] 10 mg PO TID PRN #14 tablet 11/13/17 [Rx] Cholecalciferol (D-3) [Vitamin D] 1,000 unit PO DAILY 08/02/18 [History] Multivitamin [One Daily Essential] 1 tab PO DAILY 08/02/18 [History] Aspirin 81 mg PO DAILY #30 tab.chew 08/05/18 [Rx] Metoprolol [Lopressor] 25 mg PO BID #30 tablet 08/05/18 [Rx] Tramadol HCl [Ultram] 50 mg PO HS 10/22/18 [History] Albuterol Neb [Proventil Neb] 2.5 mg IH Q2H PRN 30 Days #2 inhsol 10/23/18 [Rx] Ipratropium/Albuterol Neb [Duoneb] 3 ml IH QIDR 30 Days #5 inhsol 10/23/18 [Rx] Lactobac Cmb #3/Fos/Pantethine [Probiotic & Acidophilus Cap] 1 each PO BID 6 Days #12 capsule 10/23/18 [Rx] Levofloxacin [Levaquin] 750 mg PO DAILY 6 Days #6 tablet 10/23/18 [Rx] Allergies/Adverse Reactions: Allergy/AdvReac Type Severity Reaction Status Date / Time mannitol [From Reclast] Allergy Hives Verified 10/22/18 03:33 polymyxin B Allergy Rash Verified 10/22/18 03:33 sulfamethoxazole Allergy Rash Verified 10/22/18 03:33 [From Bactrim] trimethoprim [From Bactrim] Allergy Rash Verified 10/22/18 03:33 water for injection,sterile Allergy Hives Verified 10/22/18 03:33 [From Reclast] zoledronic acid Allergy Hives Verified 10/22/18 03:33 [From Reclast] valdecoxib AdvReac Mild raised bp Verified 10/22/18 03:33 Amoxicillin AdvReac See Verified 10/22/18 03:33 Comments NSAIDS (Non-Steroidal AdvReac Nausea Verified 10/22/18 03:33 Anti-Inflamma Nbgozxv-Dpm-Otx Reductase AdvReac Nausea Verified 10/22/18 03:33 Inhibitor [Statins] Date of admission: 10/22/18 11:53 Primary care physician: Jennifer Gautam Consults: 10/22/18 06:34 Consult to Nurse Navigator [CONS] Routine Comment: - Constitutional Vitals: Temp Pulse Resp BP Pulse Ox 98.9 F 86 16 116/73 96 10/23/18 07:16 10/23/18 07:16 10/23/18 07:16 10/23/18 07:16 10/23/18 07:16 General appearance: Present: cooperative, A&O X 3, pleasant, no acute distress, answers questions appropriately Exam: Vitals: Reviewed. General: Alert and oriented x4. In no acute distress. Skin: Normal color, no rash, no lesions. HEENT: EOM, pupils equal, round and reactive. Cardiovascular: RRR, Normal S1 & S2, no rubs, murmurs or gallops. Lungs: Good air entry, Clear to auscultation bilaterally, no wheezes or crackles. Abdomen: Soft, non-tender, no rigidity. Extremities: No deformity, no edema or tenderness, no joint swelling or clubbing . Neurological: Normal cognition and motor skills. Rest of the physical exam is non contributory - Patient Status Disposition: Home, Self-Care Condition: Good Functional capacity at discharge: independent ambulation Overall status at discharge: patient is progressing back to baseline - Discharge Instructions Follow Up With: Jennifer Gautam MD [Primary Care Provider] - 10/30/18 10:15 am (Please follow up as schedule...) - Diet and Activity Activity: resume usual activities as tolerated, wear oxygen at all times Diet: low salt diet
[2018-10-23] MEDS ORDERED: levoFLOXacin 750 MG TABLET PO SCH (10:45)
[2018-10-23 11:30] VITALS: BP 145/80
--- NOTE | 2018-10-23 15:26 | Physician Discharge Referral ---
Home Health/Hosp Referral Info Transfer to: Home Health - Diagnosis (1) Pneumonia Priority: Primary Status: Acute (2) Acute exacerbation of chronic obstructive airways disease Priority: Secondary Status: Acute (3) Hyperlipidemia Priority: Secondary Status: Chronic (4) DVT prophylaxis Priority: Secondary Status: Acute - Respiratory Orders Oxygen / L per min Smoking Cessation: Smoking cessation has been advised. For more information, call the [place] Tobacco Quit Line at 6-618-AZVO-NOW. - Diet/Nutrition Diet/Nutrition Orders: Regular - Activity Activity Orders: Ambulate - Services Needed Following services are medically necessary services: Nursing - Transfer Medications Prescriptions: Albuterol Neb [Proventil Neb] 2.5 mg IH Q2H PRN 30 Days #2 inhsol PRN Reason: Shortness Of Breath/Wheezing Ipratropium/Albuterol Neb [Duoneb] 3 ml IH QIDR 30 Days #5 inhsol Lactobac Cmb #3/Fos/Pantethine [Probiotic & Acidophilus Cap] 1 each PO BID 6 Days #12 capsule Levofloxacin [Levaquin] 750 mg PO DAILY 6 Days #6 tablet Home Medications: Albuterol Sulfate [Albuterol Inhaler] 2 puff IH Q4HR PRN 12/21/15 [History] Docusate [Colace] 100 mg PO BID 12/21/15 [History] Citalopram Hydrobromide [Celexa] 40 mg PO HS 05/08/16 [History] ALPRAZolam [Xanax 0.5 MG Tablet] 0.5 mg PO BID PRN 07/04/17 [History] Cetirizine HCl [Zyrtec] 10 mg PO DAILY 07/04/17 [History] Gabapentin [Neurontin] 600 mg PO TID 07/04/17 [History] Cyclobenzaprine [Flexeril] 10 mg PO TID PRN #14 tablet 11/13/17 [Rx] Cholecalciferol (D-3) [Vitamin D] 1,000 unit PO DAILY 08/02/18 [History] Multivitamin [One Daily Essential] 1 tab PO DAILY 08/02/18 [History] Aspirin 81 mg PO DAILY #30 tab.chew 08/05/18 [Rx] Metoprolol [Lopressor] 25 mg PO BID #30 tablet 08/05/18 [Rx] Tramadol HCl [Ultram] 50 mg PO HS 10/22/18 [History] Albuterol Neb [Proventil Neb] 2.5 mg IH Q2H PRN 30 Days #2 inhsol 10/23/18 [Rx] Ipratropium/Albuterol Neb [Duoneb] 3 ml IH QIDR 30 Days #5 inhsol 10/23/18 [Rx] Lactobac Cmb #3/Fos/Pantethine [Probiotic & Acidophilus Cap] 1 each PO BID 6 Days #12 capsule 10/23/18 [Rx] Levofloxacin [Levaquin] 750 mg PO DAILY 6 Days #6 tablet 10/23/18 [Rx] Allergies/Adverse Reactions: Allergy/AdvReac Type Severity Reaction Status Date / Time mannitol [From Reclast] Allergy Hives Verified 10/22/18 03:33 polymyxin B Allergy Rash Verified 10/22/18 03:33 sulfamethoxazole Allergy Rash Verified 10/22/18 03:33 [From Bactrim] trimethoprim [From Bactrim] Allergy Rash Verified 10/22/18 03:33 water for injection,sterile Allergy Hives Verified 10/22/18 03:33 [From Reclast] zoledronic acid Allergy Hives Verified 10/22/18 03:33 [From Reclast] valdecoxib AdvReac Mild raised bp Verified 10/22/18 03:33 Amoxicillin AdvReac See Verified 10/22/18 03:33 Comments NSAIDS (Non-Steroidal AdvReac Nausea Verified 10/22/18 03:33 Anti-Inflamma Aaehaar-Zwq-Olu Reductase AdvReac Nausea Verified 10/22/18 03:33 Inhibitor [Statins] Certification: Further, I certify that my clinical findings support that this patient is homebound (i.e. absences from home require considerable and taxing effort and are for medical reasons or faith services or infrequently or short duration when for other reasons) because: Homebound Reason: Patient requires assistance of a person or device to safely leave home Attestation: My signature below is to certify that this patient is under my care and that I, or nurse practitioner, or a physician's surgical dental assistant working with me, has a [id number] encounter with this patient.
[2018-10-24] MEDS ORDERED: Levofloxacin 750 MG/150 ML 750 MG/150 ML BAG IVPB SCH (09:00)
== END 2018-10-23 15:09 | disposition home or self-care (01) | DRG 190 ==
LOC: 2ANU 03:32 → EMEROOARM 03:32 → SUATTDRO 05:31 → 2ANU 06:20
PROVIDERS: ADMIT Internal Medicine Cardiovascular Disease; ATTEND Internal Medicine

== ENCOUNTER 2020-03-30 13:15 | Inpatient (IN) ==
[2020-03-30] MEDS ORDERED: *HR* FentaNYL (PF) 100 MCG/2 ML VIAL IVP ONE (13:45)
[2020-03-30] MEDS ORDERED: *HR* HYDROmorphone (PF) 1 MG/ML SYRINGE IVP STA (15:16)
[2020-03-30] MEDS ORDERED: Naloxone 0.4 MG/ML INJ IVP PRN (16:48)
[2020-03-30] MEDS ORDERED: Acetaminophen 325 MG TABLET PO PRN (16:48)
[2020-03-30] MEDS ORDERED: *HR* HYDROcodone/Acet 5/325 mg TABLET PO PRN (16:48)
[2020-03-30] MEDS ORDERED: ALPRAZolam 0.5 MG TABLET PO PRN (16:50)
[2020-03-30 17:14] LABS: Basophils % 0.2 %; Eosinophils # 0.1 K/mcL (0.0-0.6); Hematocrit 37.8 % (35.3-44.9); Hemoglobin 12.1 g/dL (11.5-15.4); Immature Granulocytes % 0.5 % (0-4); Lymphocytes # 0.7 K/mcL (0.6-4.6); Lymphocytes % 8.9 %; Mean Corpuscular Hemoglobin 30.3 pg (28.0-33.3); Mean Corpuscular Volume 94.7 fL (83.0-100.0); Mean Platelet Volume 9.5 fL (9.4-12.4); Monocytes # 0.4 K/mcL (0.0-1.3); Monocytes % 4.2 %; Neutrophils # 7.1 K/mcL (1.6-8.9); Platelet Count 134 K/mcL (140-400); Red Blood Count 3.99 M/mcL (3.82-4.97); Red Cell Distribution Width 13.2 % (11.5-14.5); Segmented Neutrophils % 85.2 %; White Blood Count 8.3 K/mcL (4.3-11.1)
[2020-03-30 17:20] LABS: Prothrombin Time 11.5 Seconds (9.4-12.1)
[2020-03-30 17:48] LABS: Calcium 9.3 mg/dL (8.6-10.3); Potassium 4.6 mEq/L (3.5-5.1)
[2020-03-30] MEDS: Budesonide/Formoterol 160/4.5 1 PUFF INH IH SCH (20:19)
[2020-03-30] MEDS: *HR* OxyCODONE Immed Rel 5 MG TABLET PO PRN (20:53)
[2020-03-30] MEDS: Gabapentin 300 MG CAPSULE PO SCH (20:53)
[2020-03-31] MEDS: *HR* OxyCODONE Immed Rel 5 MG TABLET PO PRN ×2 (02:54→20:16)
[2020-03-31] MEDS ORDERED: ROPIVACAINE/PF/NS 0.25% 1 EACH SYRINGE INTRAART ONE (07:14)
[2020-03-31] MEDS ORDERED: Ropivacaine/PF 0.5% 30 ML VIAL ONE (07:14)
[2020-03-31 07:16] LABS: Basophils % 0.2 %; Eosinophils # 0.1 K/mcL (0.0-0.6); Eosinophils % 0.8 %; Hematocrit 32.4 % (35.3-44.9); Hemoglobin 10.7 g/dL (11.5-15.4); Immature Granulocytes % 0.3 % (0-4); Lymphocytes # 1.7 K/mcL (0.6-4.6); Lymphocytes % 19.1 %; Mean Corpuscular Volume 93.9 fL (83.0-100.0); Mean Platelet Volume 9.7 fL (9.4-12.4); Monocytes # 0.6 K/mcL (0.0-1.3); Monocytes % 7.4 %; Neutrophils # 6.3 K/mcL (1.6-8.9); Platelet Count 157 K/mcL (140-400); Red Blood Count 3.45 M/mcL (3.82-4.97); Red Cell Distribution Width 13.4 % (11.5-14.5); Segmented Neutrophils % 72.2 %; White Blood Count 8.7 K/mcL (4.3-11.1)
[2020-03-31 07:33] LABS: Potassium 4.5 mEq/L (3.5-5.1)
[2020-03-31] MEDS ORDERED: Ethanol\\Acetic Acid\\Na Ace\\Ben 1,000 ML IRRIG.SOLN IR ONE (07:34)
[2020-03-31] MEDS ORDERED: Ondansetron 4 MG/2 ML VIAL IVP ONE ×2 (08:11→10:43)
[2020-03-31] MEDS ORDERED: *HR* OxyCODONE Immed Rel 5 MG TABLET PO PRN ×4 (08:11→10:43)
[2020-03-31] MEDS ORDERED: *HR* HYDROmorphone PF 0.5 MG/0.5 ML SYRINGE IVP PRN ×2 (08:11→10:43)
[2020-03-31] MEDS ORDERED: Lidocaine -MPF 4% 5 ML AMPUL ONE (08:35)
[2020-03-31] MEDS ORDERED: *HR* Propofol 200 MG/20 ML VIAL IVP ONE (08:35)
[2020-03-31] MEDS ORDERED: *HR* Succinylcholine 200 MG/10 ML VIAL IVP ONE (08:35)
[2020-03-31] MEDS ORDERED: *HR* FentaNYL (PF) 100 MCG/2 ML VIAL ONE (08:35)
[2020-03-31] MEDS ORDERED: Lidocaine -MPF 2% 2 ML VIAL ONE (08:35)
[2020-03-31] MEDS ORDERED: *HR* Midazolam HCl 2 MG/2 ML VIAL ONE (08:35)
[2020-03-31] MEDS ORDERED: Ondansetron 4 MG/2 ML VIAL IVP PRN ×3 (08:45→10:43)
[2020-03-31] MEDS ORDERED: Acetaminophen IV 1,000 MG/100 ML INFUS..BTL IVPB ONE ×2 (08:45→10:43)
[2020-03-31] MEDS ORDERED: *HR* Promethazine 25 MG/ML VIAL IVP PRN ×2 (08:45→10:43)
[2020-03-31] MEDS ORDERED: Ondansetron 4 MG/2 ML VIAL ONE (08:54)
[2020-03-31] MEDS ORDERED: *HR* PHENYLEPHRINE 1,000 MCG/10 ML SYRINGE IVP ONE (08:56)
[2020-03-31] MEDS ORDERED: Fluticasone Propionate Nasal 50 MCG/SPRAY BOTTLE NS SCH (09:00)
[2020-03-31] MEDS ORDERED: Loratadine 10 MG TABLET PO SCH (09:00)
[2020-03-31] MEDS ORDERED: Aspirin 81 MG TAB.CHEW PO SCH (09:00)
[2020-03-31] MEDS ORDERED: NON-FORMULARY MEDICATION 1 EACH EACH (Fluticasone/Umeclidin/Vilanter [Trelegy Ellipta 100- IH SCH (09:00)
[2020-03-31] MEDS ORDERED: Tiotropium 18 MCG inhalation IH SCH (10:00)
[2020-03-31] MEDS: Budesonide/Formoterol 160/4.5 1 PUFF INH IH SCH ×2 (10:28→19:50)
[2020-03-31 10:36] LABS: Hematocrit 33.1 % (35.3-44.9); Hemoglobin 10.3 g/dL (11.5-15.4)
[2020-03-31] MEDS ORDERED: Sennosides 8.6 MG TABLET PO PRN (10:43)
[2020-03-31] MEDS ORDERED: Acetaminophen 325 MG TABLET PO PRN (10:43)
[2020-03-31] MEDS ORDERED: MOM Conc 10 ML UD.LIQ PO PRN (10:43)
[2020-03-31] MEDS ORDERED: Naloxone 0.4 MG/ML INJ IVP PRN (10:43)
[2020-03-31] MEDS: Gabapentin 300 MG CAPSULE PO SCH ×3 (10:51→20:16)
[2020-03-31] MEDS: Ringers Solution, Lactated 1,000 ML IVC SCH (11:12)
[2020-03-31] MEDS: CeFAZolin 2 GM/120 ML BAG IVPB SCH ×2 (16:03→23:52)
[2020-03-31] MEDS: *HR* Heparin 5,000 UNIT/ML VIAL SQ SCH (17:12)
[2020-04-01] MEDS: ALPRAZolam 0.5 MG TABLET PO PRN ×2 (01:38→21:25)
[2020-04-01] MEDS: Ringers Solution, Lactated 1,000 ML IVC SCH (02:56)
[2020-04-01] MEDS: *HR* Heparin 5,000 UNIT/ML VIAL SQ SCH (05:52)
[2020-04-01 07:42] LABS: Basophils % 0.1 %; Eosinophils % 0.1 %; Hematocrit 27.5 % (35.3-44.9); Hemoglobin 8.7 g/dL (11.5-15.4); Immature Granulocytes % 0.6 % (0-4); Lymphocytes # 1.1 K/mcL (0.6-4.6); Mean Corpuscular HGB Conc 31.6 g/dL (31.6-35.5); Mean Corpuscular Hemoglobin 30.4 pg (28.0-33.3); Mean Corpuscular Volume 96.2 fL (83.0-100.0); Mean Platelet Volume 10.2 fL (9.4-12.4); Monocytes # 0.7 K/mcL (0.0-1.3); Monocytes % 8.5 %; Neutrophils # 6.5 K/mcL (1.6-8.9); Platelet Count 115 K/mcL (140-400); Red Blood Count 2.86 M/mcL (3.82-4.97); Red Cell Distribution Width 13.7 % (11.5-14.5); Segmented Neutrophils % 77.7 %; White Blood Count 8.3 K/mcL (4.3-11.1)
[2020-04-01 07:57] LABS: BUN/Creatinine Ratio 20 (6-26); Blood Urea Nitrogen 20 mg/dL (8-23); Calcium 8.6 mg/dL (8.6-10.3); Carbon Dioxide 32 mEq/L (23-29); Chloride 101 mEq/L (98-107); Glucose 117 mg/dL (70-105); Osmolality,Calculated 290 (280-300); Phosphorous 2.6 mg/dL (2.7-4.5); Potassium 4.3 mEq/L (3.5-5.1); Sodium 138 mEq/L (136-145); eGFR For African Americans > 60 (> 60); eGFR For Non-African Americans 55 (> 60)
[2020-04-01] MEDS: Budesonide/Formoterol 160/4.5 1 PUFF INH IH SCH (08:25)
[2020-04-01] MEDS: Tiotropium 18 MCG inhalation IH SCH (08:26)
[2020-04-01] MEDS: Loratadine 10 MG TABLET PO SCH (08:41)
[2020-04-01] MEDS: Aspirin 81 MG TAB.CHEW PO SCH (08:42)
[2020-04-01] MEDS: Gabapentin 300 MG CAPSULE PO SCH ×3 (08:42→21:26)
[2020-04-01] MEDS: Fluticasone Propionate Nasal 50 MCG/SPRAY BOTTLE NS SCH (08:43)
[2020-04-01] MEDS: *HR* OxyCODONE Immed Rel 5 MG TABLET PO PRN (08:46)
[2020-04-01] MEDS: *HR* HYDROcodone/Acet 5/325 mg TABLET PO PRN (13:22)
[2020-04-02] MEDS: Budesonide/Formoterol 160/4.5 1 PUFF INH IH SCH ×3 (00:40→20:14)
[2020-04-02 02:10] LABS: Basophils % 0.4 %; Eosinophils # 0.2 K/mcL (0.0-0.6); Eosinophils % 2.1 %; Hematocrit 25.3 % (35.3-44.9); Immature Granulocytes % 0.4 % (0-4); Lymphocytes # 1.3 K/mcL (0.6-4.6); Lymphocytes % 17.8 %; Mean Corpuscular HGB Conc 31.6 g/dL (31.6-35.5); Mean Corpuscular Hemoglobin 30.3 pg (28.0-33.3); Mean Corpuscular Volume 95.8 fL (83.0-100.0); Mean Platelet Volume 9.9 fL (9.4-12.4); Monocytes # 0.6 K/mcL (0.0-1.3); Neutrophils # 5.4 K/mcL (1.6-8.9); Platelet Count 122 K/mcL (140-400); Red Blood Count 2.64 M/mcL (3.82-4.97); Red Cell Distribution Width 13.8 % (11.5-14.5); Segmented Neutrophils % 71.3 %; White Blood Count 7.5 K/mcL (4.3-11.1)
[2020-04-02 02:31] LABS: BUN/Creatinine Ratio 25 (6-26); Blood Urea Nitrogen 22 mg/dL (8-23); Calcium 8.2 mg/dL (8.6-10.3); Carbon Dioxide 29 mEq/L (23-29); Chloride 102 mEq/L (98-107); Glucose 128 mg/dL (70-105); Osmolality,Calculated 289 (280-300); Sodium 137 mEq/L (136-145); eGFR For African Americans > 60 (> 60); eGFR For Non-African Americans > 60 (> 60)
[2020-04-02 02:32] LABS: Magnesium 1.9 mg/dL (1.6-2.6)
[2020-04-02 02:54] LABS: Folate 11.8 ng/mL (3.0-16.0)
[2020-04-02] MEDS: Tiotropium 18 MCG inhalation IH SCH (07:55)
[2020-04-02] MEDS: Loratadine 10 MG TABLET PO SCH (09:33)
[2020-04-02] MEDS: Gabapentin 300 MG CAPSULE PO SCH ×3 (09:33→20:56)
[2020-04-02] MEDS: Aspirin 81 MG TAB.CHEW PO SCH (09:33)
[2020-04-02] MEDS: Fluticasone Propionate Nasal 50 MCG/SPRAY BOTTLE NS SCH (09:35)
[2020-04-02 11:52] LABS: Hematocrit 26.4 % (35.3-44.9); Hemoglobin 8.3 g/dL (11.5-15.4)
[2020-04-02] MEDS: *HR* HYDROcodone/Acet 5/325 mg TABLET PO PRN (20:56)
[2020-04-03 01:12] LABS: Basophils % 0.3 %; Eosinophils # 0.2 K/mcL (0.0-0.6); Eosinophils % 3.4 %; Hematocrit 25.1 % (35.3-44.9); Immature Granulocytes % 0.6 % (0-4); Lymphocytes # 1.6 K/mcL (0.6-4.6); Mean Corpuscular HGB Conc 31.9 g/dL (31.6-35.5); Mean Corpuscular Hemoglobin 30.7 pg (28.0-33.3); Mean Corpuscular Volume 96.2 fL (83.0-100.0); Mean Platelet Volume 9.7 fL (9.4-12.4); Monocytes # 0.6 K/mcL (0.0-1.3); Monocytes % 8.4 %; Neutrophils # 4.5 K/mcL (1.6-8.9); Platelet Count 127 K/mcL (140-400); Red Blood Count 2.61 M/mcL (3.82-4.97); Red Cell Distribution Width 13.4 % (11.5-14.5); Segmented Neutrophils % 64.3 %; White Blood Count 7.1 K/mcL (4.3-11.1)
[2020-04-03 01:32] LABS: BUN/Creatinine Ratio 18 (6-26); Blood Urea Nitrogen 16 mg/dL (8-23); Calcium 8.4 mg/dL (8.6-10.3); Carbon Dioxide 32 mEq/L (23-29); Chloride 102 mEq/L (98-107); Glucose 118 mg/dL (70-105); Osmolality,Calculated 288 (280-300); Potassium 4.1 mEq/L (3.5-5.1); Sodium 138 mEq/L (136-145); eGFR For African Americans > 60 (> 60); eGFR For Non-African Americans > 60 (> 60)
[2020-04-03] MEDS: *HR* HYDROcodone/Acet 5/325 mg TABLET PO PRN (08:43)
[2020-04-03] MEDS: Aspirin 81 MG TAB.CHEW PO SCH (10:08)
[2020-04-03] MEDS: Gabapentin 300 MG CAPSULE PO SCH (10:09)
[2020-04-03] MEDS: Loratadine 10 MG TABLET PO SCH (10:09)
[2020-04-03] MEDS: Budesonide/Formoterol 160/4.5 1 PUFF INH IH SCH (10:11)
[2020-04-03] MEDS: Tiotropium 18 MCG inhalation IH SCH (10:14)
[2020-04-03] MEDS: Fluticasone Propionate Nasal 50 MCG/SPRAY BOTTLE NS SCH (10:17)
[2020-04-03 11:02] VITALS: BP 112/61
== END 2020-04-03 14:17 | disposition home health service (06) | DRG 483 ==
LOC: 3BNU 13:15 → EMEROOARM 13:15 → 3BNU 17:00 → SUATTDRO 17:40
PROVIDERS: ADMIT Internal Medicine; ATTEND Family Medicine